=== PATIENT | female | born 1940 | race Caucasian/White ===

== ENCOUNTER 2017-04-03 13:11 | Inpatient (IN) | payer MEDICARE, OTHER ==
[~2017-04-03] VITALS: Ht 165.1 cm; Wt 81.6 kg
[~2017-04-03 13:11] MED LIST: AMLO5TAB4 PO; ASCO500C16 PO; ATOR10TA PO; BENEFIBER PO; CARB-93 PO; CLON0.1T PO; CRAN1TAB3 PO; DIVA500T2 PO; DOCU-25 PO; DONE10TA4 PO; GABA-532 PO; GABA-534 PO; GEMF600T PO; HEPA500014 SQ; HYDR-552 PO; HYDR25TA4 PO; INSU100V7 SQ; LACT1TAB20 PO; LEVO200T PO; LISI-603 PO; MULT1CAP34 PO; OMEP20CA10 PO; TYL2T PO; VORT10TA PO
--- NOTE | 2017-04-03 13:18 | NUR ---
Pt [email or web address] from [facility]: more altered. base line a/o x 1. hypotensive. Iv ns 300 cc given in field. Placed on monitor. Awaiting md order. Pt has LFA #18 iv access KILN CLEANER.
[2017-04-03] MEDS ORDERED: IV NS 0.9% 500 ML IV ONE (13:21)
[2017-04-03] MEDS ORDERED: IV SET PRIMARY 1 EA INFUS.SET MC ONE (13:21)
[2017-04-03] MEDS ORDERED: CEFTRIAXONE 1GM BAG (ER ONLY) 50 ML IV ONE ×2 (13:21→13:30)
[2017-04-03] MEDS ORDERED: SECONDARY IV SET 1 EA INFUS.SET MC ONE ×2 (13:22→17:34)
[2017-04-03] MEDS ORDERED: IV NS 0.9% 2,000 ML ONE (13:22)
[2017-04-03] MEDS ORDERED: IV SET PRIMARY PUMP SET 1 EA INFUS.SET MC ONE ×2 (13:22→17:34)
--- NOTE | 2017-04-03 13:26 | NUR ---
LFA #18 IV ACCESS SAVE ALL OPERATOR. BLOOD SAMPLE COLLECTED SENT TO LAB
[2017-04-03 13:27] LABS: BASOPHILS # (AUTO) 0.2 /CMM (0.0-0.2); EOSINOPHILS % (AUTO) 0.1 % (0.0-6.0); HEMATOCRIT 30 % (33-45); HEMOGLOBIN 9.8 g/dL (11.5-14.8); LYMPHOCYTES # (AUTO) 0.9 /CMM (0.8-4.8); LYMPHOCYTES % (AUTO) 11.2 % (20.0-44.0); MEAN CORPUSCULAR HEMOGLOBIN 27 PG (26.0-33.0); MEAN CORPUSCULAR HGB CONC 32 g/dl (31.0-36.0); MEAN CORPUSCULAR VOLUME 85 fL (82-100); MONOCYTES # (AUTO) 0.6 /CMM (0.1-1.30); MONOCYTES % (AUTO) 7.9 % (2.0-12.0); NEUTROPHILS # (AUTO) 6.3 /CMM (1.8-8.9); NEUTROPHILS % (AUTO) 78.8 % (43.0-81.0); PLATELET COUNT (AUTO) 148 /CMM (150-450); RED BLOOD CELL COUNT(AUTO) 3.57 MIL/uL (4.0-5.2)
[2017-04-03] MEDS ORDERED: AZITHROMYCIN 500 MG in IV D5W 250 ML IV ONE (13:30)
[2017-04-03] MEDS ORDERED: VANCOMYCIN 1 GM in IV D5W 250 ML IV ONE (13:30)
[2017-04-03] MEDS ORDERED: IV NS 0.9% 1,000 ML BAG IV ONE (13:30)
--- NOTE | 2017-04-03 13:42 | NUR ---
CALLED NURSING RETAIL INTERIOR DESIGNER FOR GARRY BED
[2017-04-03 13:43] LABS: INR 1.07 (0.87-1.13); PROTHROMBIN TIME 11.1 SECS (9.5-12.7)
[2017-04-03 13:45] LABS: CALCIUM, SERUM 8.4 mg/dL (8.5-10.1); CARBON DIOXIDE 28 mmol/L (21-32); CHLORIDE 99 mmol/L (98-107); GLUCOSE 210 mg/dL (74-106); POTASSIUM 5.4 mmol/L (3.5-5.1); SODIUM SERUM 134 mmol/L (136-145); UREA NITROGEN, BLOOD 50 mg/dL (7-18)
[2017-04-03 13:50] LABS: ALANINE AMINOTRANSFERASE < 6 U/L (12-78); ALKALINE PHOSPHATASE 50 U/L (46-116); ASPARTATE AMINOTRANSFERASE 9 U/L (15-37); BILIRUBIN,DIRECT 0.1 mg/dL (0.0-0.2); BILIRUBIN,TOTAL 0.3 mg/dL (0.2-1.0); TOTAL PROTEIN, SERUM 5.7 g/dL (6.4-8.2)
[2017-04-03 13:54] LABS: TROPONIN I < 0.017 ng/mL (0.00-0.056)
[2017-04-03 13:54] LABS: APPEARANCE,URINE CLOUDY (CLEAR); BILIRUBIN,URINE NEGATIVE (NEGATIVE); BLOOD, URINE NEGATIVE Ery/uL (NEGATIVE); COLOR,URINE YELLOW (YELLOW); KETONES,URINE TRACE (NEGATIVE); LEUKOCYTE ESTERASE ,URINE 1+ (NEGATIVE); NITRITE, URINE NEGATIVE (NEGATIVE); PH,URINE 5.5 (5.0-8.0); PROTEIN,URINE NEGATIVE (NEGATIVE); UGLUCOSE NEGATIVE (NEGATIVE); UROBILINOGEN,URINE 0.2 EU/dL (0.2)
[2017-04-03 14:10] LABS: RBC,URINE 0-2 /HPF (0-2)
[2017-04-03] MEDS ORDERED: INSU100I19 SQ (14:10)
[2017-04-03] MEDS ORDERED: CARB1TAB24 PO (14:10)
[2017-04-03] MEDS ORDERED: CLOP75TA2 PO (14:10)
[2017-04-03] MEDS ORDERED: INSU100V3 SQ (14:10)
[2017-04-03] MEDS ORDERED: FERR-58 PO (14:10)
[2017-04-03] MEDS ORDERED: NA P133E RC (14:10)
[2017-04-03] MEDS ORDERED: LEVO100T9 PO (14:10)
[2017-04-03] MEDS ORDERED: BISA10SU8 RC (14:10)
[2017-04-03] MEDS ORDERED: MAGN400O6 PO (14:10)
[2017-04-03 14:11] LABS: BACTERIA,URINE Few /HPF (None Seen); SQUAMOUS EPITHELIAL CELL,UR Few /HPF (None Seen); YEAST,URINE Few /HPF (None Seen)
--- NOTE | 2017-04-03 14:56 | NUR ---
Report given to CLARISSE Tripathi for ELLYN Tele 308
[2017-04-03] MEDS ORDERED: MAGNESIUM HYDROXIDE 30 ML UDC PO PRN (15:00)
[2017-04-03] MEDS ORDERED: BISACODYL SUPP (10 MG) 10 MG/SUPP.RECT SUPP.RECT RC PRN (15:00)
[2017-04-03] MEDS ORDERED: SODIUM POLYSTYRENE SULFONATE 15 G/60 ML BOTTLE PO ONE (15:00)
[2017-04-03] MEDS ORDERED: IV NS 0.9% 1,000 ML IV ONE (15:00)
[2017-04-03] MEDS ORDERED: DEXTROSE 50%-WATER 50 ML DISP.SYRIN IV PRN (15:00)
--- NOTE | 2017-04-03 15:20 | NUR ---
RN NOTES RECEIVED PATIENT FROM ER ONLY OPENS EYES AND SPEAKS FEW WORDS INCOMPREHENSIBLY AND GOES BACK TO SLEEP. RESPIRATIONS EVEN AND UNLABORED ON 10L VIA FACE MASK PT IS MOUTH BREATHER AND SATURATION AT 95% PT DNR DNI MD AWARE AND ORDERS PLACED. IN NO PAIN OR DISCOMFORT AT THIS TIME, IV SITE PATENT AND INTACT NO REDNESS OR INFILTRATION NOTED. DR MANN AWARE OF PT ADMISSION AND CONDITION WILL CONTINUE ORDERS, PT NOTED WITH HARD DEVICE LIKE AREA ON RIGHT UPPER QUADRANT UPON PALPATION NO DOCUMENTATION ON SNF PAPERWORK PT UNABLE TO VERBALIZE, CALLED SNF FOR FLU/PNA AND URINE CULTURE RECORDS, WILL AWAIT CALL BACK WILL MAKE NEXT SHIFT AWARE WILL CONTINUE TO MONITOR, KEPT CLEAN DRY AND COMFORTABLE, CALL LIGHT WITHIN EASY REACH, WILL CONTINUE TO MONITOR
[2017-04-03 16:00] VITALS: BP 105/43
[2017-04-03] MEDS ORDERED: FEE PK DOSING 1 MIN EA MC ONE (16:14)
[2017-04-03] MEDS: CARBIDOPA/LEVODOPA 25/250 MG 1 UDTAB PO SCH (17:00)
[2017-04-03] MEDS ORDERED: VANCOMYCIN 0.75 GM in IV D5W 250 ML IV SCH (17:00)
[2017-04-03] MEDS: FERROUS SULFATE (325 MG) 325 MG/TAB TABLET PO SCH (17:00)
[2017-04-03] MEDS: BLOOD SUGAR DIAGNOSTIC 1 EACH STRIP VI SCH ×2 (17:35→21:41)
[2017-04-03] MEDS: PIPERACILLIN /TAZOBACTAM 2.25 G in IV D5W 50 ML IV SCH (17:35)
[2017-04-03] MEDS: INSULIN REGULAR, HUMAN 100 UNIT/ML 3 ML VIAL SQ PRN (17:38)
--- NOTE | 2017-04-03 19:39 | NUR ---
RN NOTES PT OPENS EYES AND SPEAKS FEW WORDS INCOMPREHENSIBLY AND GOES BACK TO SLEEP. RESPIRATIONS EVEN AND UNLABORED ON 10L VIA FACE MASK PT IS MOUTH BREATHER AND SATURATION AT 95% PT DNR DNI MD AWARE AND ORDERS PLACED. IN NO PAIN OR DISCOMFORT AT THIS TIME, IV SITE PATENT AND INTACT NO REDNESS OR INFILTRATION NOTED. , PT NOTED WITH HARD DEVICE LIKE AREA ON RIGHT UPPER QUADRANT UPON PALPATION NO DOCUMENTATION ON SNF PAPERWORK PT UNABLE TO VERBALIZE, CALLED SNF FOR FLU/PNA AND URINE CULTURE RECORDS, WILL AWAIT CALL BACK WILL MAKE NEXT SHIFT AWARE WILL CONTINUE TO MONITOR, KEPT CLEAN DRY AND COMFORTABLE, CALL LIGHT WITHIN EASY REACH, ENDORSED TO NEXT SHIFT FOR CONTINUITY OF CARE
--- NOTE | 2017-04-03 19:40 | NUR ---
RN NOTES RECEIVED PT ASLEEP, HOB ELEVATED, OPENS EYES ONLY TO PAINFUL STIMULI, NON VERBAL, VERY LETHARGIC. ON 10 LPM O2 VIA FACE MASK AND TOLERATED WELL.. TELEMONITOR READS SINUS RHYTHM WITH 1ST DEGREE AV BLOCK AND PVC'S. WITH IV ACCESS ON LEFT ARM AND RIGHT ARM WITH ONGOING NS AT 100 CC/HR. PT IS DNR/DNI. KEPT COMFORTABLE AND ATTENDED. KEPT CLEAN AND DRY. WILL CONTINUE TO MONITOR PT.
[2017-04-03 20:00] VITALS: BP 97/47
[2017-04-03] MEDS: DIVALPROEX SODIUM 500 MG TABLET.DR PO SCH (21:00)
[2017-04-03] MEDS: HEPARIN SODIUM, PORCINE 5000 UNITS/1 ML VIAL SQ SCH (21:39)
[2017-04-03] MEDS: INSULIN DETEMIR 100 UNIT/ML CARTRIDGE SQ SCH (21:40)
--- NOTE | 2017-04-03 21:41 | NUR ---
RN NOTES BLOOD SUGAR CHECKED 119 MG/DL, NO INSULIN COVERAGE GIVEN PER SLIDING SCALE AND PT IS NPO. WILL CONTINUE TO MONITOR PT.
[2017-04-03] MEDS: *INSULIN REGULAR(HUMULIN R)HUM 100 UNIT/ML VIAL SQ PRN (21:43)
--- NOTE | 2017-04-03 21:50 | NUR ---
RN NOTES PT IS VERY LETHARGIC, UNABLE TO GIVE PO MEDS, VITAL SIGNS STABLE. DR MALAVE, MADE HER AWARE WITH ORDER TO HOLD PO MEDS UNTIL SEEN BY ST. NOTED AND CARRIED OUT.
[2017-04-03 22:00] VITALS: BP 97/47
[2017-04-03] MEDS ORDERED: ATORVASTATIN 10 MG TABLET PO SCH (22:00)
[2017-04-03] MEDS ORDERED: GABAPENTIN 300 MG CAPSULE PO SCH (22:00)
[2017-04-04] VITALS (8 sets, daily range): BP systolic 114–154; BP diastolic 46–58
[2017-04-04] MEDS: PIPERACILLIN /TAZOBACTAM 2.25 G in IV D5W 50 ML IV SCH ×4 (00:10→23:57)
[2017-04-04] MEDS: BLOOD SUGAR DIAGNOSTIC 1 EACH STRIP VI SCH ×4 (06:28→21:59)
--- NOTE | 2017-04-04 06:28 | NUR ---
RN NOTES BLOOD SUGAR CHECKED 84 MG/DL, PT PT OPENS HER EYES TO VERBAL AND TACTILE STIMULUS. NO SIGNS OF HYPOGLYCEMIA NOTED.
--- NOTE | 2017-04-04 06:56 | NUR ---
RN NOTES PT LEEP, HOB ELEVATED, BREATHING REGULAR AND UNLABORED, ON O2 INHALATION AT 10 LPM VIA FACIAL MASK WITH GOOD SATURATION. VITAL SIGNS, STABLE, AFEBRILE. NO SIGNS OF HYPOGLYCEMIA NOTED. TELE MONITOR READS SINUS RHYTHM WITH 1ST DEGREE AV BLOCK WITH PVC'S WITH HEART RATE OF 66. NO EPISODE OF NAUSEA, VOMITING AND DIARRHEA. PT STILL LETHARGIC, OPENS HER EYES AND MUMBLES WORDS TO VERBAL STIMULI. KEPT PT ON NPO UNTIL SEEN BY ST. KEPT CLEAN AND DRY. TURNED AND REPOSITION SCHEDULED. WILL ENDORSE TO MORNING RN FOR CONTINUITY OF CARE.
[2017-04-04] MEDS ORDERED: LEVOTHYROXINE SODIUM 100 MCG TABLET PO SCH (07:30)
--- NOTE | 2017-04-04 08:04 | NUR ---
RN NOTE RECEIVED PT ASLEEP. PT IS STABLE, DIFFICULT TO AROUSE. NO S/S OF DISTRESS OR PAIN. PT IS ON 10/L OXYGEN VIA FACE MASK. IV ON LFA 18G AND RFA 18G WITH NS RUNNING ON 100 ML/HR. PT IS DNR/DNI. SAFETY MEASURES IN PLACE, BED LOWERED TO LOWEST POSITION, CALL LIGHT WITHIN REACH. WILL CONTINUE TO MONITOR.
[2017-04-04] MEDS ORDERED: CLOPIDOGREL BISULFATE 75 MG TABLET PO SCH (09:00)
[2017-04-04] MEDS ORDERED: GABAPENTIN 100 MG CAPSULE PO SCH (09:00)
[2017-04-04] MEDS: DOCUSATE SODIUM 100 MG CAPSULE PO SCH (09:00)
[2017-04-04] MEDS: DIVALPROEX SODIUM 500 MG TABLET.DR PO SCH ×2 (09:00→21:57)
[2017-04-04] MEDS: CARBIDOPA/LEVODOPA 25/250 MG 1 UDTAB PO SCH ×2 (09:00→13:00)
[2017-04-04] MEDS ORDERED: GEMFIBROZIL 600 MG TABLET PO SCH (09:00)
[2017-04-04] MEDS: FERROUS SULFATE (325 MG) 325 MG/TAB TABLET PO SCH (09:00)
[2017-04-04] MEDS: HEPARIN SODIUM, PORCINE 5000 UNITS/1 ML VIAL SQ SCH ×2 (11:17→21:58)
[2017-04-04 12:50] LABS: BASOPHILS % (AUTO) 0.3 % (0.0-2.0); EOSINOPHILS % (AUTO) 0.1 % (0.0-6.0); HEMATOCRIT 30 % (33-45); HEMOGLOBIN 9.6 g/dL (11.5-14.8); MEAN CORPUSCULAR HEMOGLOBIN 27 PG (26.0-33.0); MEAN CORPUSCULAR HGB CONC 32 g/dl (31.0-36.0); MEAN CORPUSCULAR VOLUME 86 fL (82-100); MONOCYTES # (AUTO) 0.7 /CMM (0.1-1.30); MONOCYTES % (AUTO) 8.8 % (2.0-12.0); NEUTROPHILS # (AUTO) 6.1 /CMM (1.8-8.9); NEUTROPHILS % (AUTO) 77.8 % (43.0-81.0); PLATELET COUNT (AUTO) 117 /CMM (150-450); RDW COEFFICIENT OF VARIATION 18.1 (11.5-15.0); RED BLOOD CELL COUNT(AUTO) 3.55 MIL/uL (4.0-5.2); WHITE BLOOD COUNT (AUTO) 7.8 K/uL (4.3-11.0)
[2017-04-04 12:56] LABS: ALANINE AMINOTRANSFERASE < 6 U/L (12-78); ALBUMIN 1.6 g/dL (3.4-5.0); ALKALINE PHOSPHATASE 54 U/L (46-116); ASPARTATE AMINOTRANSFERASE 14 U/L (15-37); BILIRUBIN,TOTAL 0.4 mg/dL (0.2-1.0); CALCIUM, SERUM 8.3 mg/dL (8.5-10.1); CARBON DIOXIDE 26 mmol/L (21-32); CHLORIDE 105 mmol/L (98-107); CREATININE 1.5 mg/dL (0.6-1.3); GLUCOSE 109 mg/dL (74-106); PHOSPHORUS 3.5 mg/dL (2.5-4.9); POTASSIUM 5.5 mmol/L (3.5-5.1); SODIUM SERUM 137 mmol/L (136-145); TOTAL PROTEIN, SERUM 5.4 g/dL (6.4-8.2); UREA NITROGEN, BLOOD 44 mg/dL (7-18)
--- NOTE | 2017-04-04 14:43 | NUR ---
WOUND CARE CONSULT: PT PRESENTS WITH IMMOBILITY AND INCONTINENCE. SACRAL SCAR NOTED. RECOMMENDATIONS MADE FOR SKIN PROTECTION. DISCUSSED WITH NURSING STAFF. PT ON CLAUS ISOFLEX LOW AIRLOSS BED. WILL SEE PRN. MALLORY IN AGREEMENT WITH PLAN OF CARE. Addendum: 04/04/17 at 1444 by JOSETTE WINTERS WNDNU Amended: Links added.
[2017-04-04] MEDS: VANCOMYCIN 0.75 GM in IV D5W 250 ML IV SCH (14:50)
[2017-04-04] MEDS: Z GUARD REMEDY 2 OZ OINT TP SCH (15:00)
[2017-04-04] MEDS ORDERED: Z GUARD REMEDY 2 OZ OINT TP PRN (15:00)
[2017-04-04] MEDS ORDERED: SODIUM POLYSTYRENE SULFONATE 15 G/60 ML BOTTLE NG ONE (16:00)
[2017-04-04] MEDS ORDERED: PHARMACY TO CHANGE PO MEDS TO GT/NG XX PRN (16:00)
--- NOTE | 2017-04-04 16:03 | NUR ---
RN NOTES OBTAINED ORDER FOR NGT PLACEMENT, INSERTED 14 FR NGT AT 50CM LENGTH POSITIVE PLACEMENT BY AUSCULTATION CXR ORDERED TO VERIFY PLACEMENT PER MD, WILL CONTINUE TO MONITOR
[2017-04-04] MEDS ORDERED: MAGNESIUM HYDROXIDE 30 ML UDC GT PRN (16:10)
[2017-04-04] MEDS ORDERED: IV SET PRIMARY PUMP SET 1 EA INFUS.SET MC ONE (16:54)
[2017-04-04] MEDS ORDERED: SECONDARY IV SET 1 EA INFUS.SET MC ONE (16:54)
[2017-04-04] MEDS: FERROUS SULFATE (325 MG) 325 MG/TAB TABLET GT SCH (17:00)
--- NOTE | 2017-04-04 17:02 | NUR ---
RN NOTES PER MD WAIT UNTIL FINAL CXR RESULT TO CONFIRM PLACEMENT BEFORE ADMINISTERING MEDICATIONS VIA NGT
[2017-04-04] MEDS: IV D5/0.45 NACL 1,000 ML IV PRN (17:10)
[2017-04-04] MEDS: INSULIN REGULAR, HUMAN 100 UNIT/ML 3 ML VIAL SQ PRN (17:50)
--- NOTE | 2017-04-04 18:26 | NUR ---
RN NOTE PT IS ASLEEP, HOB ELEVATED, BREATHING REGULAR/UNLABORED. PT IS ON 10 L 02 VIA FACE MASK. NG TUBE INSERTED. CXR ORDERED FOR CONFIRMATION OF PLACEMENT. PT IS DIFFICULT TO AROUSE. KEPT PT ON NPO UNTIL CXR PLACEMENT CONFIRMATION IS OBTAINED. WILL ENDORSE TO BRAND COORDINATOR NURSE FOR CONTINUITY OF CARE.
--- NOTE | 2017-04-04 19:27 | NUR ---
RN NOTE CAN PUSHER NOTIFIED THAT EARLIER SCHEDULED PO KAYEXALATE AND CARBIDOPA WERE HELD UNTIL CXR CONFIRMS PLACEMENT OF NG TUBE. ONCE CONFIRMED NIGHTSHIFT NURSE AWARE TO GIVE BOTH MEDICATIONS.
--- NOTE | 2017-04-04 19:28 | NUR ---
RN NOTES RECEIVED PT ASLEEP, HOB ELEVATED, OPENS EYES ONLY TO VERBAL AND PAINFUL STIMULI, NON VERBAL, LETHARGIC. ON 10 LPM O2 VIA FACE MASK AND TOLERATED WELL.. TELEMONITOR READS SINUS RHYTHM WITH 1ST DEGREE AV BLOCK AND PVC'S. NGT ON RIGHT NARES PRESENT, AWAITING FOR THE X-RAY RESULT TO CONFIRM PLACEMENT. WITH IV ACCESS ON LEFT ARM AND RIGHT ARM WITH ONGOING D5 1/2NS AT 75 CC/HR. KEPT CLEAN AND DRY. WILL CONTINUE TO MONITOR PT.
--- NOTE | 2017-04-04 20:05 | NUR ---
RN NOTES CALLED RADIOLOGY, SPOKE TO ANSON TO ASK FOR THE CLARIFICATION OF THE NGT PLACEMENT. PER ANSON WILL CALL THE ONE WHO READ THE XR AND WILL CALL BACK.
--- NOTE | 2017-04-04 20:25 | NUR ---
RN NOTES RECEIVED A CALL FROM RADILOGIST BRANDY AND COFIRMED THE PLACEMENT OF THE NGT IN THE STOMACH AND WILL PUT ADDENDUM ON THE CXR READING.
[2017-04-04] MEDS: GLYTROL 1,000 ML BAG GT PRN (21:37)
--- NOTE | 2017-04-04 21:43 | NUR ---
RN NOTES BLOOD SUGAR CHECKED 122MG/DL, NO INSULIN COVERAGE PER SLIDING SCALE. WILL HOLD LEVEMIR DOSE BECAUSE PT JUST STARTED HER NGT FEEDING. WILL CONTINUE TO MONITOR PT.
[2017-04-04] MEDS: ATORVASTATIN 10 MG TABLET GT SCH (21:57)
[2017-04-04] MEDS: GABAPENTIN 300 MG CAPSULE GT SCH (21:58)
[2017-04-04] MEDS: INSULIN DETEMIR 100 UNIT/ML CARTRIDGE SQ SCH (22:00)
[2017-04-04] MEDS ORDERED: SODIUM POLYSTYRENE SULFONATE 15 G/60 ML BOTTLE ONE (22:17)
[2017-04-04] MEDS: CARBIDOPA/LEVODOPA 25/250 MG 1 UDTAB GT SCH (22:20)
[2017-04-05] VITALS (8 sets, daily range): BP systolic 128–153; BP diastolic 53–72
[2017-04-05] MEDS ORDERED: VANCOMYCIN 0.75 GM in IV D5W 250 ML IV SCH (02:00)
[2017-04-05] MEDS: BLOOD SUGAR DIAGNOSTIC 1 EACH STRIP VI SCH ×4 (06:05→21:42)
[2017-04-05] MEDS: INSULIN REGULAR, HUMAN 100 UNIT/ML 3 ML VIAL SQ PRN ×2 (06:51→12:32)
--- NOTE | 2017-04-05 06:51 | NUR ---
RN NOTES BLOOD SUGAR CHECKED 168 MG/DL, 3 UNITS INSULIN GIVEN PER SLIDING SCALE.WILL CONTINUE TO MONITOR.
[2017-04-05 07:18] LABS: BASOPHILS % (AUTO) 0.3 % (0.0-2.0); EOSINOPHILS % (AUTO) 0.4 % (0.0-6.0); HEMATOCRIT 26 % (33-45); HEMOGLOBIN 8.8 g/dL (11.5-14.8); LYMPHOCYTES % (AUTO) 14.5 % (20.0-44.0); MEAN CORPUSCULAR HEMOGLOBIN 28 PG (26.0-33.0); MEAN CORPUSCULAR HGB CONC 33 g/dl (31.0-36.0); MEAN CORPUSCULAR VOLUME 85 fL (82-100); MONOCYTES # (AUTO) 0.4 /CMM (0.1-1.30); NEUTROPHILS # (AUTO) 5.5 /CMM (1.8-8.9); NEUTROPHILS % (AUTO) 78.8 % (43.0-81.0); PLATELET COUNT (AUTO) 130 /CMM (150-450); RDW COEFFICIENT OF VARIATION 18.1 (11.5-15.0); WHITE BLOOD COUNT (AUTO) 6.9 K/uL (4.3-11.0)
[2017-04-05 07:39] LABS: CALCIUM, SERUM 8.4 mg/dL (8.5-10.1); CARBON DIOXIDE 30 mmol/L (21-32); CHLORIDE 105 mmol/L (98-107); CREATININE 1.2 mg/dL (0.6-1.3); GLUCOSE 176 mg/dL (74-106); MAGNESIUM 1.8 mg/dL (1.8-2.4); PHOSPHORUS 2.5 mg/dL (2.5-4.9); POTASSIUM 3.7 mmol/L (3.5-5.1); SODIUM SERUM 140 mmol/L (136-145); UREA NITROGEN, BLOOD 31 mg/dL (7-18)
--- NOTE | 2017-04-05 07:45 | NUR ---
RN NOTES PT LEEP, HOB ELEVATED, BREATHING REGULAR AND UNLABORED, ON O2 INHALATION AT 10 LPM VIA FACIAL MASK WITH GOOD SATURATION. VITAL SIGNS, STABLE, AFEBRILE. NO SIGNS OF HYPOGLYCEMIA NOTED. TELE MONITOR READS SINUS RHYTHM WITH 1ST DEGREE AV BLOCK . NO EPISODE OF NAUSEA, VOMITING AND DIARRHEA. KEPT PT ON NPO WITH NGT INTACT WITH FEEDING TOLERATED WELL. PT STILL LETHARGIC, OPENS HER EYES AND MUMBLES WORDS TO VERBAL STIMULI. KEPT CLEAN AND DRY. TURNED AND REPOSITION SCHEDULED. WILL ENDORSE TO MORNING RN FOR CONTINUITY OF CARE.
--- NOTE | 2017-04-05 08:00 | NUR ---
SUPERVISOR CHAR HOUSE AM NOTES RECEIVED PT AWAKE.HOB ELEVATED, OPENS EYES ONLY TO VERBAL AND PAINFUL STIMULI, NON VERBAL, LETHARGIC. ON 10 LPM O2 VIA FACE MASK AND TOLERATED WELL.. TELEMONITOR READS SINUS RHYTHM WITH 1ST DEGREE AV BLOCK AND PVC'S HR 77. NGT ON RIGHT NARES PRESENT,WITH IV ACCESS ON RIGHT ARM WITH ONGOING D5 1/2NS AT 75 CC/HR. KEPT CLEAN AND DRY. WILL CONTINUE TO MONITOR PT.
[2017-04-05] MEDS: CLOPIDOGREL BISULFATE 75 MG TABLET GT SCH (08:56)
[2017-04-05] MEDS: GABAPENTIN 100 MG CAPSULE GT SCH (08:56)
[2017-04-05] MEDS: VANCOMYCIN 0.75 GM in IV D5W 250 ML IV SCH (08:56)
[2017-04-05] MEDS: GEMFIBROZIL 600 MG TABLET GT SCH (08:56)
[2017-04-05] MEDS: CARBIDOPA/LEVODOPA 25/250 MG 1 UDTAB GT SCH ×3 (08:57→17:25)
[2017-04-05] MEDS: DOCUSATE SODIUM 100 MG CAPSULE PO SCH (08:57)
[2017-04-05] MEDS: FERROUS SULFATE (325 MG) 325 MG/TAB TABLET GT SCH ×2 (08:57→17:25)
[2017-04-05] MEDS: DIVALPROEX SODIUM 500 MG TABLET.DR PO SCH ×2 (09:03→21:40)
[2017-04-05] MEDS: LEVOTHYROXINE SODIUM 100 MCG TABLET GT SCH (09:03)
[2017-04-05] MEDS: HEPARIN SODIUM, PORCINE 5000 UNITS/1 ML VIAL SQ SCH ×2 (09:04→21:41)
[2017-04-05] MEDS: Z GUARD REMEDY 2 OZ OINT TP SCH (09:08)
--- NOTE | 2017-04-05 10:00 | NUR ---
PT IS MORE ALERT AND VERBALLY RESPONSIVE COMPARED YESTERDAY EVEN FAMILY NOTICED THE IMPROVEMENT IN PT'S LOC.PT IS ABLE TO SPIT OUT PHLEGM AFTER BREATHING TX.KEPT CLEAN AND DRY.
[2017-04-05] MEDS: PIPERACILLIN /TAZOBACTAM 2.25 G in IV D5W 50 ML IV SCH ×3 (11:46→23:41)
[2017-04-05] MEDS: FLUCONAZOLE (100 MG) 100 MG TABLET GT SCH (11:47)
--- NOTE | 2017-04-05 12:30 | NUR ---
PT'S RFA H/L GOT INFILTRATED AND PT IS A HARDSTICK.MIDLINE RN INSERTED A MIDLINE CATHETER TO MAGDY GAUGE 18.PT TOLERATED WELL.REMOVED RFA AND ELEVATED RT ARM TO REDUCE SWELLING.
--- NOTE | 2017-04-05 19:30 | NUR ---
RN NOTES RECEIVED PT AWAKE, HOB ELEVATED, MUMBLE UNCLEAR WORDS, ON 10 LPM O2 VIA FACE MASK AND TOLERATED WELL. NGT ON LEFT NARES INTACT, WITH ONGOING GLYTROL FEEDING AT 35 CC/HR AND TOLERATED WELL. IV ACCESS ON RIGHT UPPER ARM MIDLINE PATENT AND INTACT WITH ONGOING IVF INFUSING WELL. KEPT BED IN THE LOWEST POSITION, LOCKED, SIDE RAILS X2 UP WITH CALL LIGHT WITHIN REACH. KEPT PT CLEAN AND DRY. WILL CONTINUE TO MONITOR PT.
[2017-04-05] MEDS: GABAPENTIN 300 MG CAPSULE GT SCH (21:42)
[2017-04-05] MEDS: ATORVASTATIN 10 MG TABLET GT SCH (21:42)
--- NOTE | 2017-04-05 21:42 | NUR ---
RN NOTES ALL DUE MEDS GIVEN VIA NGT AND TOLERATED WELL. WILL CONTINUE TO MONITOR.
[2017-04-05] MEDS: INSULIN DETEMIR 100 UNIT/ML CARTRIDGE SQ SCH (21:48)
--- NOTE | 2017-04-05 21:48 | NUR ---
RN NOTES BLOOD SUGAR CHECKED 124 MG/DL, NO INSULIN COVERAGE PER SLIDING SCALE AND LEVEMIR 25 UNIT NOT ADMINISTERED. WILL CONTINUE TO MONITOR PT.
[2017-04-05] MEDS: *INSULIN REGULAR(HUMULIN R)HUM 100 UNIT/ML VIAL SQ PRN (21:52)
[2017-04-05] MEDS: IV D5/0.45 NACL 1,000 ML IV PRN (22:08)
--- NOTE | 2017-04-06 00:39 | NUR ---
RN NOTES WHILE CLEANING AND CHANGING THE DIAPER OF THE PT. PT PULLED OUT HER NGT. DR JULES NOTIFIED WITH ORDER TO KEEP NGT OUT AND ST EVAL FOR SWALLOWING. NOTED AND CARRIED OUT. WILL CONTINUE TO MONITOR.
[2017-04-06] MEDS: VANCOMYCIN 0.75 GM in IV D5W 250 ML IV SCH ×2 (02:15→20:38)
[2017-04-06] MEDS: PIPERACILLIN /TAZOBACTAM 2.25 G in IV D5W 50 ML IV SCH ×4 (06:16→23:07)
[2017-04-06] MEDS: BLOOD SUGAR DIAGNOSTIC 1 EACH STRIP VI SCH ×4 (06:30→22:00)
[2017-04-06] MEDS: INSULIN REGULAR, HUMAN 100 UNIT/ML 3 ML VIAL SQ PRN (06:31)
--- NOTE | 2017-04-06 06:31 | NUR ---
RN NOTES BLOOD SUGAR CHECKED 110 MG/DL, NO INSULIN COVERAGE PER SLIDING SCALE. NO SIGNS OF HYPOGLYCEMIA NOTED.
[2017-04-06 06:58] LABS: CALCIUM, SERUM 8.5 mg/dL (8.5-10.1); CARBON DIOXIDE 34 mmol/L (21-32); CHLORIDE 102 mmol/L (98-107); CREATININE 0.8 mg/dL (0.6-1.3); GLUCOSE 135 mg/dL (74-106); MAGNESIUM 1.9 mg/dL (1.8-2.4); PHOSPHORUS 2.6 mg/dL (2.5-4.9); POTASSIUM 3.6 mmol/L (3.5-5.1); SODIUM SERUM 137 mmol/L (136-145); UREA NITROGEN, BLOOD 18 mg/dL (7-18)
--- NOTE | 2017-04-06 07:03 | NUR ---
RN NOTES PT ASLEEP EASILY AROUSABLE, HOB ELEVATED, BREATHING REGULAR AND UNLABORED, ON O2 INHALATION AT 10 LPM VIA FACIAL MASK WITH GOOD SATURATION. VITAL SIGNS, STABLE, AFEBRILE. NO SIGNS OF HYPOGLYCEMIA NOTED. NO EPISODE OF NAUSEA, VOMITING AND DIARRHEA. KEPT PT ON NPO UNTIL SEEN BY ST. PT MORE ALERT, STAYS AWAKE FOR 3-4 HRS AND MUMBLES UNCLEAR WORDS KEPT CLEAN AND DRY. TURNED AND REPOSITION SCHEDULED. WILL ENDORSE TO MORNING RN FOR CONTINUITY OF CARE.
[2017-04-06 07:23] LABS: BASOPHILS % (AUTO) 0.3 % (0.0-2.0); EOSINOPHILS # (AUTO) 0.1 /CMM (0.0-0.7); EOSINOPHILS % (AUTO) 1.1 % (0.0-6.0); HEMATOCRIT 28 % (33-45); LYMPHOCYTES # (AUTO) 1.6 /CMM (0.8-4.8); LYMPHOCYTES % (AUTO) 22.2 % (20.0-44.0); MEAN CORPUSCULAR HEMOGLOBIN 28 PG (26.0-33.0); MEAN CORPUSCULAR HGB CONC 33 g/dl (31.0-36.0); MEAN CORPUSCULAR VOLUME 85 fL (82-100); MONOCYTES # (AUTO) 0.4 /CMM (0.1-1.30); MONOCYTES % (AUTO) 5.8 % (2.0-12.0); NEUTROPHILS # (AUTO) 5.2 /CMM (1.8-8.9); NEUTROPHILS % (AUTO) 70.6 % (43.0-81.0); PLATELET COUNT (AUTO) 127 /CMM (150-450); RDW COEFFICIENT OF VARIATION 18.4 (11.5-15.0); RED BLOOD CELL COUNT(AUTO) 3.25 MIL/uL (4.0-5.2); WHITE BLOOD COUNT (AUTO) 7.4 K/uL (4.3-11.0)
[2017-04-06] MEDS: LEVOTHYROXINE SODIUM 100 MCG TABLET GT SCH (07:30)
[2017-04-06 08:00] VITALS: BP 133/59
--- NOTE | 2017-04-06 08:00 | NUR ---
RN NOTE RECEIVED PT. PT IS STABLE AND SLEEPING. HOB ELEVATED. O2 AT 10LPM RUNNING VIA FACE MASK. VSS, NO S/S OF SOB OR DISTRESS. PT IS NPO UNTIL ST EVALUATION. SAFETY MEASURES IN PLACE, BED LOWERED TO LOWEST POSITION. WILL CONTINUE TO MONITOR.
[2017-04-06] MEDS: GEMFIBROZIL 600 MG TABLET GT SCH (09:00)
[2017-04-06] MEDS: CLOPIDOGREL BISULFATE 75 MG TABLET GT SCH (09:00)
[2017-04-06] MEDS: GABAPENTIN 100 MG CAPSULE GT SCH (09:00)
[2017-04-06] MEDS: CARBIDOPA/LEVODOPA 25/250 MG 1 UDTAB GT SCH ×3 (09:00→17:00)
[2017-04-06] MEDS: FERROUS SULFATE (325 MG) 325 MG/TAB TABLET GT SCH ×2 (09:00→17:00)
[2017-04-06] MEDS: FLUCONAZOLE (100 MG) 100 MG TABLET GT SCH (09:00)
[2017-04-06] MEDS: DIVALPROEX SODIUM 500 MG TABLET.DR PO SCH ×2 (09:00→21:50)
[2017-04-06] MEDS: DOCUSATE SODIUM 100 MG CAPSULE PO SCH (09:00)
--- NOTE | 2017-04-06 09:00 | NUR ---
PT AWAKE AND VERBALLY RESPONSIVE.ATTEMPTED TO TRANSFER PT TO THE CHAIR BUT PT IS WEIGHT AND IS TOO LETHARGIC TO BE TRANSFERRED-NEEDED 4 PERSON ASSIST TO TRANSFER.WILL TRY LATER.PT IS FOR PT EVAL.
[2017-04-06] MEDS: HEPARIN SODIUM, PORCINE 5000 UNITS/1 ML VIAL SQ SCH ×2 (09:30→21:50)
[2017-04-06] MEDS: Z GUARD REMEDY 2 OZ OINT TP SCH (09:37)
[2017-04-06 09:59] VITALS: BP 133/59
--- NOTE | 2017-04-06 15:55 | NUR ---
RN NOTE AM PO MEDS HELD DUE TO NPO STATUS, PENDING ST EVALUATION. ST CONTACTED.
[2017-04-06 16:00] VITALS: BP 128/60
--- NOTE | 2017-04-06 17:27 | NUR ---
PT FAILED THE SWALLOW EVAL.NOTIFIED BOBBY FINCH NP WITH ORDERS TO REINSERT PT'S NGT AND RESUME PT'S GT FEEDING.WILL CALL FAMILY IF THEY AGREED TO HAVE PEG TUBE PLACEMENT.
--- NOTE | 2017-04-06 17:30 | NUR ---
CALLED PT'S ,CHARLES TANG,WHO AGREED FOR PT TO HAVE PEG PLACEMENT.NOTIFIED BOBBY FINCH NP AND MADE AWARE.
--- NOTE | 2017-04-06 18:15 | NUR ---
RN NOTE NGT PLACED. STAT XRAY ORDERED TO CONFIRM PLACEMENT. MEDS HELD UNTIL CXR CONFIRMS PLACEMENT.
--- NOTE | 2017-04-06 18:24 | NUR ---
RN CLOSING NOTE PT IS AWAKE AND ALERT. HOB ELEVATED. NO S/S OF DISTRESS OR PAIN. NGT PLACED, STAT CXR ORDERED FOR CONFIRMATION OF PLACEMENT. BILATERAL WRIST RESTRAINTS APPLIED. D5W 1/2 RUNNING AT 50 ML/HR VIA MIDLINE ON RFA. SAFETY MEASURES PLACED. WILL ENDORSE TO UTILITY SUPERVISOR BOAT AND PLANT FOR CONTINUITY OF CARE.
[2017-04-06] MEDS: IV D5/0.45 NACL 1,000 ML IV PRN (18:56)
--- NOTE | 2017-04-06 18:57 | NUR ---
DR MARROQUIN CALLED AND GAVE ORDERS TO OBTAIN CONSENT FOR PEG PLACEMENT WHICH WILL BE DONE EITHER TUESDAY OR TUESDAY.DR MARROQUIN STATED TO REINSERT NGT AND RESUME GT FEEDING.HELD PLAVIX ORDERED.
--- NOTE | 2017-04-06 19:10 | NUR ---
RN NOTES RECEIVED PT AWAKE, HOB ELEVATED, MUMBLE UNCLEAR WORDS, ON 2 LPM O2 VIA NC AND TOLERATED WELL. NGT ON LEFT NARES INTACT, AWAITING FOR X-RAY RESULT TO CONFIRM PLACEMENT IN THE STOMACH. IV ACCESS ON RIGHT UPPER ARM MIDLINE PATENT AND INTACT WITH ONGOING IVF INFUSING WELL. KEPT BED IN THE LOWEST POSITION, LOCKED, SIDE RAILS X2 UP WITH CALL LIGHT WITHIN REACH. KEPT PT CLEAN AND DRY. WILL CONTINUE TO MONITOR PT.
--- NOTE | 2017-04-06 19:40 | NUR ---
RN NOTES PER REPORT FROM AM NURSE, PT IS FOR PEG PLACEMENT ON TUESDAY (04/08/17) OR TUESDAY (04/11/17). , CHARLES TANG GAVE AND SIGNED THE CONSENT FOR THE PROCEDURE.
[2017-04-06 20:00] VITALS: BP 133/53
[2017-04-06] MEDS: GLYTROL 1,000 ML BAG GT PRN (20:38)
--- NOTE | 2017-04-06 20:38 | NUR ---
RN NOTES X-RAY RESULT RECEIVED AND CONFIRMED THE PLACEMENT OF THE NG TUBE IN THE STOMACH. GLYTROL FEEDING STARTED AT 35 ML/HR ORDERED. WILL CONTINUE TO MONITOR PT.
[2017-04-06] MEDS: GABAPENTIN 300 MG CAPSULE GT SCH (21:51)
[2017-04-06] MEDS: ATORVASTATIN 10 MG TABLET GT SCH (21:51)
[2017-04-06 22:00] VITALS: BP 133/53
[2017-04-06] MEDS: *INSULIN REGULAR(HUMULIN R)HUM 100 UNIT/ML VIAL SQ PRN (22:01)
--- NOTE | 2017-04-06 22:01 | NUR ---
RN NOTES BLOOD SUGAR CHECKED 1165 MG/DL, 3 UNITS INSULIN GIVEN SUBCU PER SLIDING SCALE. WILL CONTINUE TO MONITOR PT.
[2017-04-06] MEDS: INSULIN DETEMIR 100 UNIT/ML CARTRIDGE SQ SCH (22:02)
[2017-04-07] MEDS: PIPERACILLIN /TAZOBACTAM 2.25 G in IV D5W 50 ML IV SCH ×3 (05:48→17:58)
[2017-04-07] MEDS: BLOOD SUGAR DIAGNOSTIC 1 EACH STRIP VI SCH ×4 (06:45→22:07)
[2017-04-07] MEDS: INSULIN REGULAR, HUMAN 100 UNIT/ML 3 ML VIAL SQ PRN ×2 (06:46→18:22)
--- NOTE | 2017-04-07 06:46 | NUR ---
RN NOTES BLOOD SUGAR CHECKED 141 MG/DL, 2 UNITS REGULAR INSULIN GIVEN SUBCU PER SLIDING SCALE.
[2017-04-07 06:48] LABS: BASOPHILS % (AUTO) 0.3 % (0.0-2.0); EOSINOPHILS # (AUTO) 0.1 /CMM (0.0-0.7); EOSINOPHILS % (AUTO) 2.8 % (0.0-6.0); HEMATOCRIT 24 % (33-45); HEMOGLOBIN 7.8 g/dL (11.5-14.8); LYMPHOCYTES # (AUTO) 1.2 /CMM (0.8-4.8); LYMPHOCYTES % (AUTO) 26.1 % (20.0-44.0); MEAN CORPUSCULAR HEMOGLOBIN 28 PG (26.0-33.0); MEAN CORPUSCULAR HGB CONC 33 g/dl (31.0-36.0); MEAN CORPUSCULAR VOLUME 84 fL (82-100); MONOCYTES # (AUTO) 0.6 /CMM (0.1-1.30); MONOCYTES % (AUTO) 12.4 % (2.0-12.0); NEUTROPHILS # (AUTO) 2.7 /CMM (1.8-8.9); NEUTROPHILS % (AUTO) 58.4 % (43.0-81.0); PLATELET COUNT (AUTO) 148 /CMM (150-450); RDW COEFFICIENT OF VARIATION 17.5 (11.5-15.0); RED BLOOD CELL COUNT(AUTO) 2.84 MIL/uL (4.0-5.2); WHITE BLOOD COUNT (AUTO) 4.6 K/uL (4.3-11.0)
--- NOTE | 2017-04-07 07:15 | NUR ---
RN NOTES PT ASLEEP EASILY AROUSABLE, HOB ELEVATED, BREATHING REGULAR AND UNLABORED, ON O2 INHALATION AT 2 LPM VIA NC WITH GOOD SATURATION. NGT INTACT WITH ONGOING FEEDING AND TOLERATED WELL. VITAL SIGNS, STABLE, AFEBRILE. NO SIGNS OF HYPOGLYCEMIA NOTED. NO EPISODE OF NAUSEA, VOMITING AND DIARRHEA. PT MORE ALERT AND MUMBLES UNCLEAR WORDS. SOFT WRIST RESTRAINT ON LEFT HAND ON, WITH GOOD CIRCULATION. KEPT CLEAN AND DRY. TURNED AND REPOSITION SCHEDULED. WILL ENDORSE TO MORNING RN FOR CONTINUITY OF CARE.
[2017-04-07 07:34] LABS: CALCIUM, SERUM 8.2 mg/dL (8.5-10.1); CARBON DIOXIDE 33 mmol/L (21-32); CHLORIDE 100 mmol/L (98-107); CREATININE 0.7 mg/dL (0.6-1.3); GLUCOSE 132 mg/dL (74-106); MAGNESIUM 1.7 mg/dL (1.8-2.4); PHOSPHORUS 2.5 mg/dL (2.5-4.9); POTASSIUM 2.9 mmol/L (3.5-5.1); SODIUM SERUM 137 mmol/L (136-145); UREA NITROGEN, BLOOD 10 mg/dL (7-18)
--- NOTE | 2017-04-07 07:43 | NUR ---
RN OPENING NOTES RECEIVED PATIENT IN BED ASLEEP, AROUSES EASILY. PATIENT ALERT AND MUMBLES UNCLEAR WORDS. RESPIRATIONS EVEN AND UNLABORED, ON O2 AT 2LPM VIA NC WITH GOOD SATURATION. NGT IN PLACE WITH ONGOING FEEDING AND TOLERATED WELL. SOFT WRIST RESTRAINT ON LEFT HAND ON, WITH GOOD CIRCULATION. BED IN LOWEST POSITION, HOB ELEVATED. CALL LIGHT WITHIN REACH. WILL CONTINUE TO MONITOR ACCORDINGLY.
[2017-04-07 07:57] VITALS: BP 114/63
[2017-04-07 08:00] VITALS: BP 114/63
[2017-04-07] MEDS: CARBIDOPA/LEVODOPA 25/250 MG 1 UDTAB GT SCH ×3 (08:31→16:25)
[2017-04-07] MEDS: LEVOTHYROXINE SODIUM 100 MCG TABLET GT SCH (08:31)
[2017-04-07] MEDS: DOCUSATE SODIUM 100 MG CAPSULE PO SCH (08:32)
[2017-04-07] MEDS: GEMFIBROZIL 600 MG TABLET GT SCH (08:32)
[2017-04-07] MEDS: FERROUS SULFATE (325 MG) 325 MG/TAB TABLET GT SCH ×2 (08:32→16:25)
[2017-04-07] MEDS: GABAPENTIN 100 MG CAPSULE GT SCH (08:32)
[2017-04-07] MEDS: FLUCONAZOLE (100 MG) 100 MG TABLET GT SCH (08:32)
[2017-04-07] MEDS: DIVALPROEX SODIUM 500 MG TABLET.DR PO SCH ×2 (08:33→21:40)
[2017-04-07] MEDS ORDERED: POTASSIUM CHLORIDE 20 MEQ POWDER PACKET GT ONE (09:00)
[2017-04-07] MEDS: Z GUARD REMEDY 2 OZ OINT TP SCH (10:36)
[2017-04-07] MEDS: HEPARIN SODIUM, PORCINE 5000 UNITS/1 ML VIAL SQ SCH ×2 (10:37→21:00)
[2017-04-07] MEDS ORDERED: SECONDARY IV SET 1 EA INFUS.SET MC ONE (11:06)
[2017-04-07] MEDS: Magnesium 1GM/D5W 100ML PREMIX 100 ML IV SCH ×2 (11:11→15:11)
--- NOTE | 2017-04-07 12:00 | NUR ---
PER DR GIL, PATIENT FOR EDG AND PEG PLACEMENT TOMMORW AT 0900, HOLD PLAVIX AND NPO AFTER MIDNIGHT.
[2017-04-07] MEDS: VANCOMYCIN 0.75 GM in IV D5W 250 ML IV SCH (13:56)
[2017-04-07 16:00] VITALS: BP 125/65
[2017-04-07] MEDS ORDERED: BLOOD IV SET 1 EA INFUS.SET MC ONE (16:21)
[2017-04-07] MEDS ORDERED: IV NS 0.9% 0 ML IV ONE (17:44)
--- NOTE | 2017-04-07 19:00 | NUR ---
RN CLOSING NOTES PATIENT IN BED RESTING. NO CHANGE OF CONDITION. NO ACUTE DISTRESS NOTED. NO SOB. ALL NEEDS ATTENDED AND PROVIDED. KEPT PATIENT CLEAN AN DRY. SOFT RESTRAINT ON LEFT HAND CHECKED WITH GOOD CIRCULATION. BED IN LOWEST POSITION. CALL LIGHT WITHIN REACH. ENDORSED TO WINDOW SHADE ESTIMATOR RN FOR CONTINUITY OF CARE.
--- NOTE | 2017-04-07 19:30 | NUR ---
RN NOTES RECEIVED PATIENT IN BED AWAKE, AO X 1, ABLE TO SAY NAME, GARBLED SPEECH, CANNOT FOLLOW SIMPLE DIRECTIONS. NO ACUTE DISTRESS NOTED. NO SIGNS OF PAIN NOTED. IV SITE PATENT, INTACT; FLUSHED. NGT PATENT, INTACT; IN PLACE VIA AUSCULTATION. GTF INFUSING. LEFT SOFT WRIST IN PLACE. RELEASED FOR ROM. ON LOW BED WITH BILATERAL UPPER SIDE RAILS UP. WILL CONTINUE TO MONITOR.
[2017-04-07 20:00] VITALS: BP 120/99
[2017-04-07] MEDS: ATORVASTATIN 10 MG TABLET GT SCH (21:40)
[2017-04-07] MEDS: GABAPENTIN 300 MG CAPSULE GT SCH (21:40)
[2017-04-07] MEDS: INSULIN DETEMIR 100 UNIT/ML CARTRIDGE SQ SCH (22:00)
--- NOTE | 2017-04-07 22:07 | NUR ---
RN NOTES BS 80. NPO AT MIDNIGHT. MITCHELL MAXWELL.
[2017-04-08] VITALS (10 sets, daily range): BP systolic 130–151; BP diastolic 59–76
--- NOTE | 2017-04-08 | NUR ---
RN NOTES NPO STARTING MIDNIGHT.
[2017-04-08] MEDS ORDERED: IV NS 0.9% 250 ML IV ONE ×2 (00:05→08:57)
[2017-04-08] MEDS: PIPERACILLIN /TAZOBACTAM 2.25 G in IV D5W 50 ML IV SCH ×5 (00:16→23:25)
--- NOTE | 2017-04-08 06:03 | NUR ---
RN NOTES PATIENT ASLEEP, EASILY AROUSABLE. RESPIRATIONS EVEN. NO SIGNS OF PAIN NOTED. DUE MEDS GIVEN WITH NO ASE NOTED. NEEDS ATTENDED. SAFETY PRECAUTIONS AND COMFORT MEASURES IN PLACE. WILL GIVE REPORT TO DAY SHIFT FOR CONTINUITY OF CARE.
[2017-04-08 06:42] LABS: CALCIUM, SERUM 8.9 mg/dL (8.5-10.1); CARBON DIOXIDE 36 mmol/L (21-32); CHLORIDE 103 mmol/L (98-107); CREATININE 0.7 mg/dL (0.6-1.3); GLUCOSE 107 mg/dL (74-106); MAGNESIUM 2.2 mg/dL (1.8-2.4); POTASSIUM 3.9 mmol/L (3.5-5.1); SODIUM SERUM 141 mmol/L (136-145); UREA NITROGEN, BLOOD 7 mg/dL (7-18); VANCOMYCIN,TROUGH 21 ug/ml (12-20)
[2017-04-08] MEDS: BLOOD SUGAR DIAGNOSTIC 1 EACH STRIP VI SCH ×4 (06:51→21:59)
--- NOTE | 2017-04-08 07:15 | NUR ---
RN NOTES RECEIVED PATIENT ON BED ASLEEP, AROUSES EASILY. ALERT AND ORIENTED X1, ABLE TO SAY NAME, GARBLED SPEECH. NO ACUTE DISTRESS NOTED. NO S/S OF PAIN OR DISCOMFORT. IV SITE INTACT AND PATENT. NGT IN PLACE. PATIENT IS FOR EDG AND PEG PLACEMENT TODAY, CONSENT SIGNED. BED IN LOWEST POSITION. CALL LIGHT WITHIN REACH. WILL CONTINUE TO MONITOR.
[2017-04-08] MEDS: LEVOTHYROXINE SODIUM 100 MCG TABLET GT SCH (07:30)
[2017-04-08] MEDS: VANCOMYCIN 0.75 GM in IV D5W 250 ML IV SCH (07:42)
--- NOTE | 2017-04-08 07:43 | NUR ---
VANCOMYCIN HELD, VANCO TROUGH LEVEL 21
--- NOTE | 2017-04-08 08:10 | NUR ---
PATIENT WENT TO PEG PLACEMENT WITH 2 OR NURSES, PATIENT STABLE VITAL SIGNS.
[2017-04-08 08:32] LABS: BASOPHILS % (AUTO) 0.2 % (0.0-2.0); EOSINOPHILS # (AUTO) 0.2 /CMM (0.0-0.7); EOSINOPHILS % (AUTO) 2.7 % (0.0-6.0); HEMATOCRIT 25 % (33-45); HEMOGLOBIN 8.3 g/dL (11.5-14.8); LYMPHOCYTES # (AUTO) 1.9 /CMM (0.8-4.8); LYMPHOCYTES % (AUTO) 26.3 % (20.0-44.0); MEAN CORPUSCULAR HEMOGLOBIN 28 PG (26.0-33.0); MEAN CORPUSCULAR HGB CONC 33 g/dl (31.0-36.0); MEAN CORPUSCULAR VOLUME 84 fL (82-100); MONOCYTES % (AUTO) 14.8 % (2.0-12.0); PLATELET COUNT (AUTO) 186 /CMM (150-450); RDW COEFFICIENT OF VARIATION 17.6 (11.5-15.0); RED BLOOD CELL COUNT(AUTO) 2.99 MIL/uL (4.0-5.2); WHITE BLOOD COUNT (AUTO) 7.1 K/uL (4.3-11.0)
[2017-04-08] MEDS: CARBIDOPA/LEVODOPA 25/250 MG 1 UDTAB GT SCH ×4 (09:00→17:48)
[2017-04-08] MEDS: DOCUSATE SODIUM 100 MG CAPSULE PO SCH (09:00)
[2017-04-08] MEDS: GABAPENTIN 100 MG CAPSULE GT SCH (09:00)
[2017-04-08] MEDS: FLUCONAZOLE (100 MG) 100 MG TABLET GT SCH (09:00)
[2017-04-08] MEDS: FERROUS SULFATE (325 MG) 325 MG/TAB TABLET GT SCH ×2 (09:00→16:10)
[2017-04-08] MEDS: Z GUARD REMEDY 2 OZ OINT TP SCH (09:00)
[2017-04-08] MEDS: DIVALPROEX SODIUM 500 MG TABLET.DR PO SCH (09:00)
[2017-04-08] MEDS: GEMFIBROZIL 600 MG TABLET GT SCH (09:00)
--- NOTE | 2017-04-08 09:00 | NUR ---
TALKED WITH JON ARZOLA RD ABOUT ADVANCEMENT OF TUBE FEEDING RATE TO 75ML/HR. OK TO ADVANCE TUBE FEEDING RATE [facility]
--- NOTE | 2017-04-08 12:00 | NUR ---
PER MD, HOLD ANTICOAGULATION FOR 48 HOURS THEN RESUME.
--- NOTE | 2017-04-08 12:45 | NUR ---
PATIENT CAME BACK FROM PEG PLACEMENT. PATIENT IN STABLE CONDITION
--- NOTE | 2017-04-08 15:00 | NUR ---
STARTED 1 UNIT PRBC 350MLS. PATIENT STABLE VITAL SIGNS. WILL CONTINUE TO MONITOR
--- NOTE | 2017-04-08 19:00 | NUR ---
1 UNIT PRBC TRANSFUSED. NO ADVERSE REACTION NOTED. PATIENT VITAL SIGNS STABLE. WILL CONTINUE TO MONITOR
--- NOTE | 2017-04-08 19:10 | NUR ---
MS RN OPENING NOTES: RECEIVED PT IN BED ASLEEP WITH NC ON 2LPM VIA NC. PT IS TOLERATING WELL. PT FOUND WITH SOFT LEFT WRIST RESTRAINT. ENDORSED FROM AM NURSE THAT SHE ATTEMPTS TO PULL OUT LINES. PT IS A/O X1. PT IS S/P PEG PLACEMENT AND FEEDING HAS NOT BEEN STARTED YET. PT IS S/P 1 UNIT PRBC. NO RESIDUAL NOTED FROM G TUBE. WILL CONTINUE TO MONITOR PT.
--- NOTE | 2017-04-08 19:10 | NUR ---
PATIENT RESTING IN BED. NO ACUTE DISTRESS NOTED. NO SOB. ALL NEEDS ATTENDED AND PROVIDED. ENDORSED TO OVEN LOADER RN FOR CONTINUITY OF CARE.
[2017-04-08] MEDS ORDERED: VANCOMYCIN 0.75 GM in IV D5W 250 ML IV SCH (20:00)
--- NOTE | 2017-04-08 20:00 | NUR ---
MS RN NOTES: BENNY HELD D/T BENNY TROUGH BEING 21.
[2017-04-08] MEDS ORDERED: GLYTROL 1,000 ML BAG GT PRN (20:38)
--- NOTE | 2017-04-08 21:30 | NUR ---
MS RN NOTES: SPOKE WITH DR. MARISA RAGLAND. GOT ORDER TO STOP DEPAKOTE 500MG AND SWITCH TO DEPAKENE 500 SINCE PT NOW HAS A PEG.
[2017-04-08] MEDS ORDERED: VALPROIC ACID 250 MG/5 ML UDC ONE (21:46)
[2017-04-08] MEDS: ATORVASTATIN 10 MG TABLET GT SCH (21:49)
[2017-04-08] MEDS: GABAPENTIN 300 MG CAPSULE GT SCH (21:49)
[2017-04-08] MEDS: VALPROIC ACID 250 MG/5 ML UDC GT SCH (21:50)
[2017-04-08] MEDS: INSULIN DETEMIR 100 UNIT/ML CARTRIDGE SQ SCH (22:00)
--- NOTE | 2017-04-08 22:00 | NUR ---
MS RN NOTES: PT IS STATUS POST PEG PLACEMENT. FEEDING HAD NOT BEEN STARTED YET. BLOOD SUGAR WAS 82. LEVEMIR 25 UNITS WAS HELD. WILL CONTINUE TO MONITOR PT.
[2017-04-08] MEDS ORDERED: BLOOD IV SET 1 EA INFUS.SET MC ONE (22:29)
[2017-04-08] MEDS ORDERED: IV NS 0.9% 0 ML IV ONE (22:33)
--- NOTE | 2017-04-08 23:17 | NUR ---
MS RN NOTES: NOTICED THAT ZOSYN FOR 1600 WAS NOT GIVEN. SPOKE WITH CHARGE NURSE. CHARGE NURSE AWARE AND SHE SAID JUST TO HANG THE MIDNIGHT DOSE.
--- NOTE | 2017-04-08 23:17 | NUR ---
MS RN NOTES: ZOSYN FOR 1600PM DOSE MISSED. CHARGE NURSE AWARE.
[2017-04-09] MEDS: PIPERACILLIN /TAZOBACTAM 2.25 G in IV D5W 50 ML IV SCH (05:48)
[2017-04-09 06:37] LABS: BASOPHILS % (AUTO) 0.4 % (0.0-2.0); EOSINOPHILS # (AUTO) 0.2 /CMM (0.0-0.7); EOSINOPHILS % (AUTO) 3.1 % (0.0-6.0); HEMATOCRIT 28 % (33-45); HEMOGLOBIN 9.4 g/dL (11.5-14.8); LYMPHOCYTES # (AUTO) 1.5 /CMM (0.8-4.8); LYMPHOCYTES % (AUTO) 22.9 % (20.0-44.0); MEAN CORPUSCULAR HEMOGLOBIN 28 PG (26.0-33.0); MEAN CORPUSCULAR HGB CONC 33 g/dl (31.0-36.0); MEAN CORPUSCULAR VOLUME 85 fL (82-100); MONOCYTES # (AUTO) 0.9 /CMM (0.1-1.30); MONOCYTES % (AUTO) 14.2 % (2.0-12.0); NEUTROPHILS # (AUTO) 3.8 /CMM (1.8-8.9); NEUTROPHILS % (AUTO) 59.4 % (43.0-81.0); PLATELET COUNT (AUTO) 159 /CMM (150-450); RDW COEFFICIENT OF VARIATION 16.3 (11.5-15.0); RED BLOOD CELL COUNT(AUTO) 3.32 MIL/uL (4.0-5.2); WHITE BLOOD COUNT (AUTO) 6.4 K/uL (4.3-11.0)
[2017-04-09 07:02] LABS: CALCIUM, SERUM 8.5 mg/dL (8.5-10.1); CARBON DIOXIDE 36 mmol/L (21-32); CHLORIDE 101 mmol/L (98-107); CREATININE 0.6 mg/dL (0.6-1.3); GLUCOSE 165 mg/dL (74-106); POTASSIUM 3.6 mmol/L (3.5-5.1); SODIUM SERUM 139 mmol/L (136-145); UREA NITROGEN, BLOOD 6 mg/dL (7-18)
--- NOTE | 2017-04-09 07:23 | NUR ---
MS RN CLOSING NOTES: ALL NEEDS WERE ATTENDED AND ANTICIPATED FOR. PT REMAINS ON 2LPM VIA NC AND IS TOLERATING WELL. PT HAS L SOFT WRIST RESTRAINTS. PT IS A/O X1 WITH PERIODS OF CONFUSION. CALL LIGHT WITHIN PT'S REACH. BED KEPT IN LOCKED, LOWEST POSITION, AND SIDE RAILS X 2 UP. PT ON GLYTROL 65ML/HR. PT'S IV REMAINS PATENT AND INTACT AND IS ON HEP LOCK. NO SIGNS OR SYMPTOMS OF DISTRESS NOTED AT THIS TIME. ENDORSED TO AM NURSE FOR ELLYN.
--- NOTE | 2017-04-09 07:30 | NUR ---
RN MS NOTES PT IN BED, AWAKE, ALERT TO SELF, WITH PERIODS OF CONFUSION, RESPIRATIONS NORMAL, CALL LIGHT WITHIN REACH, GT FEEDING INFUSING WELL, NO BLEEDING OR S/S OF INFECTION ON GT SITE, TURNED AND REPOSITIONED, KEPT WARM AND COMFORTABLE.
[2017-04-09 08:00] VITALS: BP 148/51
[2017-04-09] MEDS: LEVOTHYROXINE SODIUM 100 MCG TABLET GT SCH (10:15)
[2017-04-09] MEDS: GEMFIBROZIL 600 MG TABLET GT SCH (10:16)
[2017-04-09] MEDS: DOCUSATE SODIUM 100 MG CAPSULE PO SCH (10:16)
[2017-04-09] MEDS: CARBIDOPA/LEVODOPA 25/250 MG 1 UDTAB GT SCH ×2 (10:16→12:37)
[2017-04-09] MEDS: FERROUS SULFATE (325 MG) 325 MG/TAB TABLET GT SCH (10:16)
[2017-04-09] MEDS: VALPROIC ACID 250 MG/5 ML UDC GT SCH (10:17)
[2017-04-09] MEDS: FLUCONAZOLE (100 MG) 100 MG TABLET GT SCH (10:22)
[2017-04-09] MEDS: GABAPENTIN 100 MG CAPSULE GT SCH (10:22)
--- NOTE | 2017-04-09 11:00 | NUR ---
RN MS NOTES PT IN BED, NOT IN PAIN OR DISTRESS, SEEN BY BOBBY ELECTRONIC HEAT SEAL OPERATOR, DISCHARGE ORDER GIVEN, PT AND PT'S AL INFORMED OF MD'S ORDERS, VERBALIZED UNDERSTANDING.
[2017-04-09] MEDS: BLOOD SUGAR DIAGNOSTIC 1 EACH STRIP VI SCH ×2 (12:35→13:39)
[2017-04-09] MEDS: Z GUARD REMEDY 2 OZ OINT TP SCH (12:38)
--- NOTE | 2017-04-09 15:00 | NUR ---
RN MS NOTES PT IN BED, AWAKE, ALERT TO SELF, TRIES TO MUMBLE WORDS, INFORMED OF DISCHARGE ORDER FROM MD, PT NODS HER HEAD, NO SIGN OF PAIN OR DISCOMFORT, RESPIRATIONS NORMAL AND NOT LABORED, GT IN PLACE, NO BLEEDING NOTED TO SITE, DISCHARGE AND MEDICATION INSTRUCTIONS PROVIDED TO AL, VERBALIZED UNDERSTANDING, BELONGINGS ACCOUNTED FOR, REPORT GIVEN TO JOSE ROBB OF [facility], PICKED UP BY 2 AMBULANCE PERSONNEL, LEFT VIA GUERNEY IN STABLE CONDITION.
[2017-04-10] MEDS ORDERED: HEPARIN SODIUM, PORCINE 5000 UNITS/1 ML VIAL SQ SCH (09:00)
== END 2017-04-09 15:07 | DRG 871 ==
LOC: ER 13:12 → TELE 15:01 → MED 04-05 10:20
PROVIDERS: ADMIT Internal Medicine; ATTEND Internal Medicine
PROC: 05H533Z Insertion of Infusion Device into Right Subclavian Vein, Percutaneous Approach (ICD-10-PCS; 2017-04-05)
PROC: 30233N1 Transfusion of Nonautologous Red Blood Cells into Peripheral Vein, Percutaneous Approach (ICD-10-PCS; 2017-04-08)
PROC: 0DH63UZ Insertion of Feeding Device into Stomach, Percutaneous Approach (ICD-10-PCS; principal; 2017-04-08 09:00)
DX: A41.9 Sepsis, unspecified organism (principal); E43 Unspecified severe protein-calorie malnutrition; N17.0 Acute kidney failure with tubular necrosis; G92 Toxic encephalopathy; J18.9 Pneumonia, unspecified organism; E87.1 Hypo-osmolality and hyponatremia; I69.351 Hemiplegia and hemiparesis following cerebral infarction affecting right dominant side; D68.59 Other primary thrombophilia; B37.49 Other urogenital candidiasis; D63.8 Anemia in other chronic diseases classified elsewhere; E03.9 Hypothyroidism, unspecified; E78.5 Hyperlipidemia, unspecified; E87.5 Hyperkalemia; G40.909 Epilepsy, unspecified, not intractable, without status epilepticus; I25.10 Atherosclerotic heart disease of native coronary artery without angina pectoris; Z66 Do not resuscitate; F41.9 Anxiety disorder, unspecified; F32.9 Major depressive disorder, single episode, unspecified; E88.09 Other disorders of plasma-protein metabolism, not elsewhere classified; M62.50 Muscle wasting and atrophy, not elsewhere classified, unspecified site; I95.9 Hypotension, unspecified; Z68.30 Body mass index [BMI] 30.0-30.9, adult; L98.8 Other specified disorders of the skin and subcutaneous tissue; R13.10 Dysphagia, unspecified; Z74.01 Bed confinement status; Z79.899 Other long term (current) drug therapy; R65.20 Severe sepsis without septic shock; E11.42 Type 2 diabetes mellitus with diabetic polyneuropathy; E86.1 Hypovolemia; I10 Essential (primary) hypertension; G20 Parkinson's disease; F02.80 Dementia in other diseases classified elsewhere, unspecified severity, without behavioral disturbance, psychotic disturbance, mood disturbance, and anxiety
CPT/HCPCS: 36415; 43246; 71010-TC; 76770-TC; 80048-TC; 80053-TC; 80076-TC; 80202-TC; 81000-TC; 82272-TC; 82570-TC; 82962-TC; 83605-TC; 83735-TC; 84100-TC; 84300-TC; 84484-TC; 85025-TC; 85730-TC; 86850-TC; 86921-TC; 87040-TC; 87081-TC; 87086-TC; 92521; 92611-TC; 94799-TC; 97001-TC; A4216; A4606; J0456; J0690; J0696; J1644; J1815; J2543; J2704; J3370; J3475; J3490; J7030; J7040; J7050; J7060; P9016-BL; Z7610

== ENCOUNTER 2017-09-25 19:05 | Emergency (ER) | payer MEDICARE, OTHER ==
[~2017-09-25] VITALS: Ht 160 cm; Wt 72.6 kg
[~2017-09-25 19:05] MED LIST changes: -AMLO5TAB4 PO; -ASCO500C16 PO; -BENEFIBER PO; +BISA10SU8 RC; -CARB-93 PO; +CARB1TAB24 PO; -CLON0.1T PO; +CLOP75TA15 PO; -CRAN1TAB3 PO; +DOCU-141 PO; -DOCU-25 PO; -DONE10TA4 PO; +FERR-58 PO; -HYDR-552 PO; -HYDR25TA4 PO; +INSU100I19 SQ; +INSU100V3 SQ; -INSU100V7 SQ; -LACT1TAB20 PO; +LEVO100T9 PO; -LEVO200T PO; +MAGN400O6 PO; -MULT1CAP34 PO; +NA P133E RC; -OMEP20CA10 PO; -TYL2T PO; -VORT10TA PO
[2017-09-25] MEDS ORDERED: DIATR MEGLU/DIATRIZOATE SODIUM 30 ML BOTTLE (GASTROGRAPHIN) ONE (19:25)
[2017-09-25] MEDS ORDERED: DIATR MEGLU/DIATRIZOATE SODIUM 30 ML BOTTLE (GASTROGRAPHIN) PO ONE (19:30)
--- NOTE | 2017-09-25 20:03 | NUR ---
Patient discharged to SNF in stable condition VIA S AMBULANCE Written and verbal after care instructions given TO THE S CREW.
[2017-09-25 20:06] VITALS: BP 163/80
== END 2017-09-25 20:07 | disposition home or self-care (01) ==
LOC: ER 19:06
DX: K94.23 Gastrostomy malfunction (principal); E11.9 Type 2 diabetes mellitus without complications; E78.5 Hyperlipidemia, unspecified; I10 Essential (primary) hypertension; G62.9 Polyneuropathy, unspecified; Z79.4 Long term (current) use of insulin; Z86.73 Personal history of transient ischemic attack (TIA), and cerebral infarction without residual deficits; Z88.5 Allergy status to narcotic agent; Z88.6 Allergy status to analgesic agent; Z90.49 Acquired absence of other specified parts of digestive tract
CPT/HCPCS: 74000; 99284; A4606; Q9963 ×2; Z7610

== ENCOUNTER 2018-02-02 18:20 | Inpatient (IN) | payer MEDICARE, OTHER ==
[~2018-02-02] VITALS: Ht 167.6 cm; Wt 80.3 kg
[~2018-02-02 18:20] MED LIST changes: -FERR-58 PO; +FERR325T23 PO
--- NOTE | 2018-02-02 18:30 | NUR ---
BBPA [facility]: LEAKING G-TUBE. NAD NOTED. VSS. RR EVEN AND UNLABORED PENDING MD LAURA.
--- NOTE | 2018-02-02 19:28 | NUR ---
RECEIVED REPORT FROM CLARISSE DE LEON FOR ELLYN.
[2018-02-02 19:53] LABS: BASOPHILS # (AUTO) 0.2 /CMM (0.0-0.2); EOSINOPHILS % (AUTO) 0.7 % (0.0-6.0); HEMATOCRIT 38 % (33-45); HEMOGLOBIN 12.7 g/dL (11.5-14.8); LYMPHOCYTES # (AUTO) 1.5 /CMM (0.8-4.8); LYMPHOCYTES % (AUTO) 18.5 % (20.0-44.0); MEAN CORPUSCULAR HGB CONC 34 g/dl (31.0-36.0); MEAN CORPUSCULAR VOLUME 81 fL (82-100); MONOCYTES % (AUTO) 12.8 % (2.0-12.0); NEUTROPHILS # (AUTO) 5.4 /CMM (1.8-8.9); PLATELET COUNT (AUTO) 234 /CMM (150-450); RDW COEFFICIENT OF VARIATION 13.7 (11.5-15.0); RED BLOOD CELL COUNT(AUTO) 4.71 MIL/uL (4.0-5.2); WHITE BLOOD COUNT (AUTO) 8.2 K/uL (4.3-11.0)
[2018-02-02] MEDS ORDERED: IV NS 0.9% 500 ML BAG IV ONE (20:00)
[2018-02-02 20:12] LABS: ALANINE AMINOTRANSFERASE 10 U/L (12-78); ALBUMIN 1.8 g/dL (3.4-5.0); ALKALINE PHOSPHATASE 72 U/L (46-116); ASPARTATE AMINOTRANSFERASE 22 U/L (15-37); BILIRUBIN,DIRECT 0.1 mg/dL (0.0-0.2); BILIRUBIN,TOTAL 0.2 mg/dL (0.2-1.0); CALCIUM, SERUM 9.1 mg/dL (8.5-10.1); CARBON DIOXIDE 37 mmol/L (21-32); CHLORIDE 100 mmol/L (98-107); CREATININE 0.7 mg/dL (0.6-1.3); GLUCOSE 75 mg/dL (74-106); POTASSIUM 3.6 mmol/L (3.5-5.1); SODIUM SERUM 138 mmol/L (136-145); TOTAL PROTEIN, SERUM 6.4 g/dL (6.4-8.2); UREA NITROGEN, BLOOD 26 mg/dL (7-18)
--- NOTE | 2018-02-02 20:27 | NUR ---
314-1 MS UPDATED BED
[2018-02-02] MEDS ORDERED: IV NS 0.9% 1,000 ML IV PRN (21:42)
--- NOTE | 2018-02-02 21:50 | NUR ---
REPORT GIVEN TO MS CLARISSE LINDER FOR ELLYN.
[2018-02-02 22:00] VITALS: BP 170/89
[2018-02-02] MEDS ORDERED: BISACODYL SUPP (10 MG) 10 MG/SUPP.RECT SUPP.RECT RC PRN (22:00)
[2018-02-02] MEDS ORDERED: ONDANSETRON HCL/PF 4 MG/2 ML VIAL IVP PRN (22:00)
[2018-02-02] MEDS ORDERED: DEXTROSE 50%-WATER 50 ML DISP.SYRIN IV PRN (22:00)
[2018-02-02] MEDS ORDERED: INSULIN DETEMIR 100 UNIT/ML CARTRIDGE SQ SCH (22:00)
[2018-02-02] MEDS ORDERED: HYDROCODONE/APAP 5/325MG 1 EACH TABLET PO PRN (22:00)
[2018-02-02] MEDS ORDERED: MAG HYDROX/AL HYDROX/SIMETH 30 ML UDC PO PRN (22:00)
[2018-02-02] MEDS ORDERED: ACETAMINOPHEN 325 MG TABLET PO PRN (22:00)
[2018-02-02] MEDS ORDERED: Z GUARD REMEDY 2 OZ OINT TP PRN (22:00)
[2018-02-02] MEDS ORDERED: MAGNESIUM HYDROXIDE 30 ML UDC PO PRN (22:00)
--- NOTE | 2018-02-02 22:00 | NUR ---
admission notes: received report from karyn rn, pt brought to the unit via gurney, per report pt came from [facility] due to leaking gtube, dr jeter tried to reinsert but unsuccessful, er removed gtube of the pt. when pt got to the unit, pt no longer have gtube, only 4x4 gauze dressing covering the gtube site. pt has right wrist g 20 iv access patent and flushing well, on hl. pt will be npo. pt awake, alert but non verbal. belongings completed by employee service officer, vs taken and recorded, bed bath provided to the pt, skin assessment performed and took pictures of skin issues, printed and attached to chart. pt's paper works from facility attached to chart, also code status of pt is full cpr/full code.ble offloaded. side rails padded, suction set up secured, safety precautions for fall initiated, call light in reach, will continue monitoring pt.
--- NOTE | 2018-02-02 22:20 | NUR ---
RN NOTES: COPY ATTACHED TO CHART,PT HAS POLST DATED 2015, WILL FOLLOW UP WITH FAMILY IF THEY WANT TO CONTINUE PT ON DNR STATUS NEXT OF KIN ZULY CORTEZ CP NUMBER [phone] FOR THE MEAN TIME PT PLACED ON FULL CODE STATUS
--- NOTE | 2018-02-02 22:40 | NUR ---
BLOOD SUGAR 70, LEVEMIR NOT GIVEN: PT'S BLOOD SUGAR WAS CHECKED, RESULT IS 74, PT HAS SCHEDULED LEVEMIR, NOT ADMINISTERED AT THIS TIME DUE TO RISK OF HYPOGLYCEMIA, PT IS NPO FOR GTUBE PLACEMENT,
[2018-02-02 23:00] VITALS: BP 140/66
[2018-02-02] MEDS: BLOOD SUGAR DIAGNOSTIC 1 EACH STRIP IN SCH (23:16)
[2018-02-02] MEDS: INSULIN REGULAR, HUMAN 100 UNIT/ML 3 ML VIAL SQ PRN (23:17)
--- NOTE | 2018-02-02 23:17 | NUR ---
BLOOD SUGAR 74: BLOOD SUGAR 74, NO INSULIN GIVEN PER SLIDING SCALE, PT ON NPO FOR GTUBE PLACEMENT, PT ON IVF NS AT 75ML/HR.
--- NOTE | 2018-02-03 01:17 | NUR ---
rn notes: second cook and baker inpatient nursing aide currently in the unit, relayed about pt's blood sugar 74 and that pt on npo, per inpatient nursing aide to changed ivf to d5ns at 75ml/hr
[2018-02-03] MEDS: IV D5/ 0.9% NACL 1,000 ML IV PRN ×2 (01:27→18:54)
[2018-02-03] MEDS: BLOOD SUGAR DIAGNOSTIC 1 EACH STRIP IN SCH ×3 (05:40→17:09)
[2018-02-03] MEDS: INSULIN REGULAR, HUMAN 100 UNIT/ML 3 ML VIAL SQ PRN ×3 (05:41→17:09)
--- NOTE | 2018-02-03 05:42 | NUR ---
BS 152: PT BLOOD SUGAR IS 152, PT ON NPO PT IS FOR GTUBE PLACEMENT, NO INSULIN GIVEN AT THIS TIME, RISK FOR HYPOGLYCEMIA
[2018-02-03 06:28] LABS: BASOPHILS % (AUTO) 0.3 % (0.0-2.0); EOSINOPHILS % (AUTO) 0.6 % (0.0-6.0); HEMATOCRIT 35 % (33-45); LYMPHOCYTES # (AUTO) 1.9 /CMM (0.8-4.8); LYMPHOCYTES % (AUTO) 29.6 % (20.0-44.0); MEAN CORPUSCULAR HGB CONC 34 g/dl (31.0-36.0); MEAN CORPUSCULAR VOLUME 81 fL (82-100); MONOCYTES # (AUTO) 0.8 /CMM (0.1-1.30); MONOCYTES % (AUTO) 12.7 % (2.0-12.0); NEUTROPHILS # (AUTO) 3.6 /CMM (1.8-8.9); NEUTROPHILS % (AUTO) 56.8 % (43.0-81.0); PLATELET COUNT (AUTO) 205 /CMM (150-450); RDW COEFFICIENT OF VARIATION 14.4 (11.5-15.0); RED BLOOD CELL COUNT(AUTO) 4.31 MIL/uL (4.0-5.2); WHITE BLOOD COUNT (AUTO) 6.3 K/uL (4.3-11.0)
[2018-02-03 06:53] LABS: CALCIUM, SERUM 8.9 mg/dL (8.5-10.1); CARBON DIOXIDE 34 mmol/L (21-32); CHLORIDE 102 mmol/L (98-107); CREATININE 0.7 mg/dL (0.6-1.3); GLUCOSE 126 mg/dL (74-106); MAGNESIUM 1.8 mg/dL (1.8-2.4); PHOSPHORUS 3.6 mg/dL (2.5-4.9); POTASSIUM 3.2 mmol/L (3.5-5.1); SODIUM SERUM 141 mmol/L (136-145); UREA NITROGEN, BLOOD 23 mg/dL (7-18)
--- NOTE | 2018-02-03 07:00 | NUR ---
RN CLOSING NOTES: PT IN BED, AWAKE, REMAINS ON 2L OXYGEN VIA NC, NON VERBAL, BLE OFFLOADED, GTUBE SITE REMAINS COVERED WITH DRESSING. NO FACIAL GRIMACE NOTED, APPEARS CALM AND COMFORTABLE. IV ACCESS REMAINS PATENT AND FLUSHING WELL, INFUSING WITH D5NS AT 75ML/HR. REMAINS NPO. SIDE RAILS KEPT PADDED, SUCTION SET UP IN PLACED. WILL TELL DAY RN TO FOLLOW UP REGARDING PT'S POLST IF FAMILY WOULD LIKE TO CONTINUE BEING ON DNR.VS REMAINS STABLE, NEEDS ATTENDED. FOR GI CONSULT TODAY, FOR WOUND CARE CONSULT, SAFETY PRECAUTIONS FOR FALL REMAINS ENGAGED, CALL LIGHT IN REACH, WILL ENDORSE TO DAY RN FOR ELLYN.
[2018-02-03 07:01] LABS: CHOLESTEROL 144 mg/dL (<200); HDL CHOLESTEROL 43 mg/dL (40-60); LDL 90 mg/dL (0-99); THYROID STIMULATING HORMONE 0.313 uIU/mL (0.358-3.74); TRIGLYCERIDES 100 mg/dL (30-150)
[2018-02-03 08:00] VITALS: BP 159/78
--- NOTE | 2018-02-03 08:00 | NUR ---
m/s reproductive surgeon: initial assessment received pt in bed with eyes open, alert to self only with confusion and disorientation to time, place, and situation. g-tube stoma, dressing in place. no drainage noted. continue on ivf, infusing well. will continue to monitor.
[2018-02-03] MEDS: HEPARIN SODIUM, PORCINE 5000 UNITS/1 ML VIAL SQ SCH ×2 (08:58→21:00)
--- NOTE | 2018-02-03 09:00 | NUR ---
m/s floor press operator: notes for possible peg placement. held lovenox. hob elevated. will continue to monitor.
--- NOTE | 2018-02-03 10:00 | NUR ---
m/s archives director: md visit seen and examined by dr. brown at this time. md asked staff to call ct (next of kin) to get consent for egd with peg placement. left message to ct via answering machine. for gi consult and md will call as stated.
--- NOTE | 2018-02-03 10:10 | NUR ---
m/s health care coordinator: notes ct (uncle) called back and updated plan of care; informed him re: the need for egd with peg placement today or tomorrow and provided consent over the phone that includes anesthesia and blood products with another nurse as a witnessed.
--- NOTE | 2018-02-03 11:35 | NUR ---
m/s purchasing/receiving: notes bs [id number], pt remains npo. held coverage due to npo status. pending peg placement. will continue to monitor.
[2018-02-03] MEDS: POTASSIUM CL. PREMIX PERIPHER. 50 ML IV SCH ×4 (11:55→15:08)
--- NOTE | 2018-02-03 12:16 | NUR ---
WOUND CARE CONSULT: PT PRESENTS WITH INCONTINENCE AND SACRAL SCARRING. RECOMMENDATIONS MADE FOR SKIN PROTECTION. DISCUSSED WITH NURSING STAFF. PT TO BE PLACED ON CLAUS ISOFLEX LOW AIRLOSS BED. CURRENT KEVIN SCORE IS 9. DEFER TO MD FOR OLD G TUBE SITE. NURSING STAFF PROTECTING AREA WITH DRY DRESSING. WILL SEE PRWilla. IN AGREEMENT WITH PLAN OF CARE. Addendum: 02/03/18 at 1217 by JOSETTE WINTERS WNDNU Amended: Links added.
[2018-02-03 16:00] VITALS: BP 148/80
--- NOTE | 2018-02-03 18:10 | NUR ---
Patient resides at [facility] [phone]. Patient has hx of CVA with Right sided weakness. She requires total assist with adl's.Current plan is to dc back to SNF once discharge. Addendum: 02/03/18 at 1811 by BRITTA GARCIA RN Amended: Links added.
--- NOTE | 2018-02-03 18:30 | NUR ---
m/s automotive professional: notes pt remains npo. continue on ivf, infusing well. needs attended. hob elevated. will continue to monitor.
[2018-02-03 20:00] VITALS: BP_SYST 180; BP_SYST 185; BP_DIAS 100; BP_DIAS 76
[2018-02-03] MEDS ORDERED: hydrALAZINE HCL IV 20 MG VIAL IV ONE (20:00)
--- NOTE | 2018-02-03 20:00 | NUR ---
MS/RN OPENING NOTES PATIENT B/P ELEVATED AND RECHECK WITH MANUAL B/P CUFF AT 180/100, CONTACTED AND REPORTE PATIETN ELEVATED B/P , ON NPO STATUS WITH GTUBE DISLODGEMENT FOR PEG TO BE DONE ISREAL NG MD ORDER FOR ONE TIME HYDRALAZINE IV 10MG, ORDER RECEIVED AND CARRIED OUT. WILL MONITOR. ,D MADE AWARE IV FLUID WAS RUNNING AND ORDER TO HOLD FOR NOW. WILL MONITOR B/P AND RECHECK.
--- NOTE | 2018-02-03 20:45 | NUR ---
MS/RN NOTES PATIENT ALERT, ORIENTED, MONITORING FOR BLOOD PRESSURE, WILL MONITOR FOR RESULT OF B.P
--- NOTE | 2018-02-03 20:57 | NUR ---
MS/RN NOTES BLOOD PRESSURE RECHECK AT 200/80 , CAN OPEN EYES, NO GRIMACE, WILL CALL MD FOR ELEVATED B/P, UN RELIEVE BY IVP HYDRALAZINE FOR ELEVATED B/P
--- NOTE | 2018-02-03 21:40 | NUR ---
MD CONTACTED REPORTED ELEVATED B/P 198/91 , RECEHECK WITH MANUAL B/P, INFORMED MEASURES KEEP B/P DOWN, WITH IV HYDRALAZINE, MD WILL WRITE ORDER. ALSO REPORTED CRACKLES IN LUNGS, WITH NO LATEST XRAY MADE AWARE SAID WILL WRITE ORDER HIMSELF
[2018-02-03] MEDS: INSULIN GLARGINE, 100 UNIT/ML CARTRIDGE SQ SCH (22:00)
--- NOTE | 2018-02-03 22:01 | NUR ---
MD ORDER FOR ELEVATED SBP TO GIVE VASOTEC INJ W/ PARAMETER VERIFIED IF SBP>160. PHARMACY INFORMED.
[2018-02-03] MEDS: ENALAPRILAT INJ (1.25 MG/ML) 1.25 MG/ML VIAL IV PRN (22:10)
--- NOTE | 2018-02-03 22:26 | NUR ---
ms/rn notes monitoring for any changes and blood sugar check at 150, on npo for gtube placement,
[2018-02-03 23:19] VITALS: BP 170/80
[2018-02-04 00:03] VITALS: BP 168/72
[2018-02-04] MEDS: BLOOD SUGAR DIAGNOSTIC 1 EACH STRIP IN SCH ×4 (00:07→17:09)
--- NOTE | 2018-02-04 00:15 | NUR ---
SBP RECHECK 168/70
[2018-02-04] MEDS: ENALAPRILAT INJ (1.25 MG/ML) 1.25 MG/ML VIAL IV PRN ×2 (04:00→17:10)
--- NOTE | 2018-02-04 04:00 | NUR ---
SBP RECHECK AT 180/100 ADMINISTER NEEDED IV VASOTECH PER MD ORDER WILL MONITOR
[2018-02-04 04:59] VITALS: BP 159/78
--- NOTE | 2018-02-04 05:39 | NUR ---
NO SURGERY SCHEDULED THIS AM PLANNED, RECEIVED CONFIRMATION THIS AM POSSIBLE ISREAL AM.
[2018-02-04 06:40] LABS: EOSINOPHILS % (AUTO) 0.7 % (0.0-6.0); HEMATOCRIT 34 % (33-45); HEMOGLOBIN 11.6 g/dL (11.5-14.8); LYMPHOCYTES % (AUTO) 23.1 % (20.0-44.0); MEAN CORPUSCULAR HGB CONC 34 g/dl (31.0-36.0); MEAN CORPUSCULAR VOLUME 81 fL (82-100); MONOCYTES # (AUTO) 1.2 /CMM (0.1-1.30); MONOCYTES % (AUTO) 13.7 % (2.0-12.0); NEUTROPHILS # (AUTO) 5.4 /CMM (1.8-8.9); NEUTROPHILS % (AUTO) 62.5 % (43.0-81.0); PLATELET COUNT (AUTO) 246 /CMM (150-450); RDW COEFFICIENT OF VARIATION 14.3 (11.5-15.0); RED BLOOD CELL COUNT(AUTO) 4.22 MIL/uL (4.0-5.2); WHITE BLOOD COUNT (AUTO) 8.7 K/uL (4.3-11.0)
--- NOTE | 2018-02-04 06:45 | NUR ---
328-2 PATIENT IN BED, HOB ELEVATED MONITOIRNG SBP M KEEP COMFORTABLE. ON OXYGEN AT 2L VIA NS, WILL MONITOR. SKIN WARM TO TOUCH, BED IN LOCK POSITION, CALL LIGHTS WITHIN REACH.WILL ENDORSE TO AM RN FOR ELLYN.
[2018-02-04 06:51] LABS: CALCIUM, SERUM 8.7 mg/dL (8.5-10.1); CARBON DIOXIDE 34 mmol/L (21-32); CHLORIDE 104 mmol/L (98-107); CREATININE 0.7 mg/dL (0.6-1.3); GLUCOSE 127 mg/dL (74-106); POTASSIUM 3.5 mmol/L (3.5-5.1); SODIUM SERUM 142 mmol/L (136-145); UREA NITROGEN, BLOOD 17 mg/dL (7-18)
--- NOTE | 2018-02-04 07:38 | NUR ---
MS RN NOTES PATIENT RECEIVED RESTING INSIDE ROOM, AWAKE, ALERT, OPENS EYES AND MAKES EYE CONTACT WITH STIMULI. RESPONDS TO VERBAL AND TACTILE STIMULI, PATIENT NON-VERBAL, FLAT AFFECT, DENIES ANY PAIN OR DISCOMFORT. NO FACIAL GRIMACE NOTED AT THIS TIME. IV SITE INTACT AND PATENT, NO SWELLING OR BLEEDING NOTED AT THIS TIME. MAINTAINED ASPIRATION AND SEIZURE PRECAUTIONS, BILATERAL SIDE RAILS PADDED, MAINTAINED HOB ELEVATED AT 45. WILL CONTINUE TO MONITOR. BED LOCKED AND IN LOW POSITION. BILATERAL UPPER SIDE RAILS UP AND LOCKED. CALL LIGHT WITHIN EASY REACH
[2018-02-04 08:00] VITALS: BP 156/80
[2018-02-04] MEDS: HEPARIN SODIUM, PORCINE 5000 UNITS/1 ML VIAL SQ SCH ×2 (09:00→21:00)
--- NOTE | 2018-02-04 10:30 | NUR ---
MS RN NOTES PATIENT SEEN AND EXAMINED BY DR. GR. ATTEMPTED TO INSERT ORTEGA CATHETER ON GT SITE, INSERTED 15F CATHETER WITH SUCCESS, NO BLEEDING NOTED, CATHETER CLAMPED. WITH NEW ORDER FROM DR. GR FOR ABD XRAY FOR GT PLACEMENT. ORDER NOTED AND CARRIED OUT. RADIOLOGY MADE AWARE OF XRAY ORDER. PATIENT REMAINS CALM AND RELAXED. NO CHANGES IN LOC NOTED. NO SOB OR ACUTE DISTRESS NOTED.WILL CONTINUE TO MONITOR
--- NOTE | 2018-02-04 15:49 | NUR ---
MS RN NOTES DR. WEBSTER (GI) PRESENT AT UNIT, PATIENT SEEN AND EXAMINED. PLACED NEW GT. ATTEMPTED TO INSERT 20F WITH LUBRICATION WITH NO SUCCESS, INSERTED 18F WITH LUBRICATION SUCCESSFULLY. PATIENT TOLERATED PROCEDURE WELL. DR. WEBSTER WITH NEW ORDER FOR ABD XRAY FOR GT PLACEMENT. ORDER NOTED AND CARRIED OUT. RADIOLOGY MADE AWARE. WILL CONTINUE TO MONITOR.
[2018-02-04 16:00] VITALS: BP 163/89
[2018-02-04] MEDS ORDERED: DIATR MEGLU/DIATRIZOATE SODIUM 30 ML BOTTLE (GASTROGRAPHIN) ONE (16:04)
[2018-02-04] MEDS: INSULIN REGULAR, HUMAN 100 UNIT/ML 3 ML VIAL SQ PRN (17:10)
--- NOTE | 2018-02-04 18:00 | NUR ---
MS RN NOTES RECEIVED ABD XRAY RESULTS AND MADE DR WEBSTER AWARE, GAVE OK TO USE GT FOR FEEDING. PATIENT WAS TAKING GLUCERNA 1.5 5OCC/HR X 20 HOURS AT [facility] PER RECORD, DR. GR MADE AWARE AND GAVE OK TO START GLUCERNA 1.2 AT 50CC/HR X 20 HOURS. ORDER NOTED AND CARRIED OUT. FNS MADE AWARE, AWAITING FOR GLUCERNA.
[2018-02-04] MEDS ORDERED: GLUCERNA 1.2 1,000 ML BOTTLE NG PRN (18:30)
--- NOTE | 2018-02-04 18:34 | NUR ---
MS RN NOTES PATIENT RESTING INSIDE ROOM. AWAKE, ALERT, OPENS EYES AND MAKES EYE CONTACT ON STIMULI. RESPONDS TO VERBAL AND TACTILE STIMULI. BREATHING EVEN AND UNLABORED. NO SOB OR ACUTE DISTRESS NOTED. NO CHANGES IN LOC NOTED AT THIS TIME. PATIENT REMAINS AFEBRILE, SKIN DRY AND WARM TO TOUCH. NO BLEEDING NOTED ON GT SITE, DRESSING IN PLACE. MAINTAINED ASPIRATION PRECAUTION, MAINTAINED HOB ELEVATED AT 45. WILL ENDORSE TO INCOMING SHIFT FOR ELLYN. BED LOCKED AND IN LOW POSITION. BILATERAL UPPER SIDE RAILS UP AND LOCKED. CALL LIGHT WITHIN EASY REACH
--- NOTE | 2018-02-04 19:30 | NUR ---
MS RN OPENING NOTES: PATIENT IN BED, AWAKE, OPENS EYES SPONTANEOUSLY TO NAME, NON VERBAL. BREATHING EVEN AND UNLABORED, BUT NOTED OCCASIONAL COUGHING. SUCTIONED MOUTH PRN. PIV OVER R WRIST G20 INTACT AND PATENT, INFUSING WELL WITH D5NS RUNNING AT 75 ML/HR. [address] OVER MID UPPER ABDOMEN, PER REPORT IT WAS PLACED THIS AFTERNOON BY DR WEBSTER. ASSESSED FOR PATENCY BY INJECTING AIR, NOTED POSITIVE FOR AIR HER, ALSO ABLE TO FLUSH WITH WATER WITH EASE. FEEDING OF GLUCERNA 1.2 AT BEDSIDE, TO BE RESTARTED. PROVIDED FOR COMFORT AND SAFETY. BED IN LOWEST AND LOCKED POSITION, SIDERAILS UP X 3, BED ALARMS ON. WILL CONT TO MONITOR.
[2018-02-04 20:00] VITALS: BP 186/91
--- NOTE | 2018-02-04 20:19 | NUR ---
RN NOTES: NOTED 18 FR GTUBE IN UPPER MID ABDOMEN, NO BLOODY OR PURULENT DISCHARGE NOTED. XRAY POST PEG PLACEMENT SHOWED GT WELL PLACED IN FUNDUS OF STOMACH. CHECKED FOR PATENCY BY AUSCULTATION AND ASPIRATION, POSITIVE PLACEMENT NOTED. FLUSHED WITH WATER WITH EASE. RESTARTED GT FEEDING OF GLUCERNA, STARTED ON 25 ML/HR FOR NOW TO REASSESS FOR TOLERANCE. MAINTAINED HOB ELEVATED.
--- NOTE | 2018-02-04 20:35 | NUR ---
RN NOTES: CALLED LUZ DIESEL ENGINE INSPECTOR RE PATIENT'S BP WHICH IS STILL ELEVATED 3 HRS AFTER VASOTEC IV 1.25 MG WAS GIVEN. BP IS 186/91 BY AUTOMATIC CUFF, RECHECKED MANUALLY AT 180/100. PER LUZ, GIVE HYDRALAZINE 10 MG IV X 1 DOSE NOW, THEN RESTART HOME MEDS OF LISINOPRIL 20 MG PER GT DAILY, FIRST DOSE TO GIVE TONIGHT. ALSO, SINCE PATIENT HAD JUST HAD GTUBE REPLACED THIS AFTERNOON, ASKED DIESEL ENGINE INSPECTOR IF OK TO GIVE HEPARIN 5000 U SCHEDULED FOR TONIGHT, PER LUZ, HOLD DOSE FOR TONIGHT, RESTART IN AM. ALSO, SINCE THERE WAS A PREVIOUS NOTE FROM DR GR TO D'C IV FLUIDS ONCE FEEDING HAS BEEN RESTARTED, ASKED LUZ DIESEL ENGINE INSPECTOR IF OK TO KEEP IV FLUID FOR NOW, SINCE PATIENT WAS STARTED ON 25 ML/HR WITH GOAL OF 50 ML/HR TUBE FEEDING RATE, TO CONSTANTLY REASSESS FOR TOLERANCE, PER DIESEL ENGINE INSPECTOR, KEEP PRESENT IV FLUID FOR NOW AND D'C ONCE PT HAS REACHED GOAL RATE. WHEN ASKED IF D5NS IS OK, PER DIESEL ENGINE INSPECTOR, OK TO CONTINUE THIS IVF UNTIL PT ABLE TO TOLERATE 50 ML/HR RATE. ALL ORDERS NOTED AND CARRIED OUT.
[2018-02-04] MEDS ORDERED: hydrALAZINE HCL IV 20 MG VIAL IV ONE (21:00)
--- NOTE | 2018-02-04 21:52 | NUR ---
RN NOTES: HEPARIN 5000 UNITS HELD FOR TONIGHT PER LUZ MYERS NP, TO RESTART TOMORROW, SINCE PATIENT HAD JUST HAD GT REPLACEMENT DONE THIS AFTERNOON.
[2018-02-04] MEDS: INSULIN GLARGINE, 100 UNIT/ML CARTRIDGE SQ SCH (22:00)
[2018-02-04] MEDS: LISINOPRIL (20MG) 20 MG TABLET PO SCH (22:00)
--- NOTE | 2018-02-04 22:30 | NUR ---
RN NOTES: BLOOD SUGAR CHECKED AT 151 MG/DL, PATIENT HAS GT FEEDING OF GLUCERNA RUNNING AT 25 ML/HR. PATIENT IS TOLERATING FEEDING WELL, NO RESIDUALS NOTED. HOWEVER, SCHEDULED LANTUS 25 U SQ NOT GIVEN FOR TONIGHT SINCE GOAL RATE FOR TUBE FEEDING HAS NOT YET BEEN REACHED. WILL CONT TO MONITOR.
--- NOTE | 2018-02-04 22:33 | NUR ---
RN NOTES: CHECKED FOR RESIDUAL AT THIS TIME FROM GT, NONE NOTED, INCREASED FEEDING RATE TO 30 ML/HR.
[2018-02-05] MEDS: BLOOD SUGAR DIAGNOSTIC 1 EACH STRIP IN SCH ×4 (00:15→18:05)
[2018-02-05] MEDS: INSULIN REGULAR, HUMAN 100 UNIT/ML 3 ML VIAL SQ PRN ×4 (00:17→18:04)
[2018-02-05] MEDS ORDERED: INSULIN GLARGINE, 100 UNIT/ML CARTRIDGE SQ ONE (00:20)
--- NOTE | 2018-02-05 00:20 | NUR ---
RN NOTES: BLOOD SUGAR CHECKED AT 144 MG/DL, ADMINISTERED 2 UNITS REGULAR INSULIN PER SCALE.
[2018-02-05 00:31] VITALS: BP 153/79
[2018-02-05 04:58] VITALS: BP 107/53
--- NOTE | 2018-02-05 06:10 | NUR ---
RN NOTES: BLOOD SUGAR CHECKED AT 162 MG/DL, ADMINISTERED 3 UNITS REGULAR INSULIN SQ PER SCALE. PATIENT ON GT FEEDING OF GLUCERNA 1.2 RUNNING AT 50 ML/HR, PATIENT TOLERATING FEEDING WELL. WILL CONT TO MONITOR.
--- NOTE | 2018-02-05 06:48 | NUR ---
MS RN CLOSING NOTES: PATIENT IN BED, AWAKE BUT NON VERBAL, ON O2 AT 2LPM VIA NC, BREATHING EVEN AND UNLABORED. APPEARS CALM AND IN NO DISTRESS, ABLE TO SLEEP WELL THROUGH NIGHT. PIV OVER R WRIST G20 INTACT AND PATENT TO FLUSH. GT IN PLACE, WITH FEEDING OF GLUCERNA 1.2 RUNNING AT 50 ML/HR, PATIENT ABLE TO TOLERATE FEEDING WELL WITH NO RESIDUALS NOTED. DUE MEDS GIVEN. PROVIDED FOR COMFORT AND SAFETY. BED IN LOWEST AND LOCKED POSITION, SIDERAILS UP X 3, CALL LIGHT WITHIN REACH. WILL ENDORSE TO AM RN FOR ELLYN.
--- NOTE | 2018-02-05 07:20 | NUR ---
MS/RN OPENING NOTE PATIENT IN BED AWAKE AND NON-VERBAL. RESPIRATION REGULAR AND UNLABORED. ON O2 VIA NC AT 2L/MIN. NI S/S DISTRESS. NO MANIFESTATION OF PAIN. RIGHT WRIST G 20 PATENT AND SALINE LOCKED. GT FEEING GLUCERNA 1.2 RUNNING AT 50ML/HR. PATIENT TOLERATING FEEDING WELL. HEAD OF THE BED IS ELEVATED TO PREVENT ASPIRATION. BED LOW AND LOCKED. SIDE RAILS UP X3. CALL LIGHT WITHIN REACH. WILL CONTINUE TO MONITOR.
[2018-02-05 07:32] LABS: BASOPHILS % (AUTO) 0.2 % (0.0-2.0); EOSINOPHILS % (AUTO) 0.2 % (0.0-6.0); HEMATOCRIT 32 % (33-45); LYMPHOCYTES # (AUTO) 1.9 /CMM (0.8-4.8); LYMPHOCYTES % (AUTO) 19.8 % (20.0-44.0); MEAN CORPUSCULAR HGB CONC 34 g/dl (31.0-36.0); MEAN CORPUSCULAR VOLUME 81 fL (82-100); MONOCYTES # (AUTO) 1.3 /CMM (0.1-1.30); MONOCYTES % (AUTO) 13.9 % (2.0-12.0); NEUTROPHILS # (AUTO) 6.4 /CMM (1.8-8.9); NEUTROPHILS % (AUTO) 65.9 % (43.0-81.0); PLATELET COUNT (AUTO) 271 /CMM (150-450); RDW COEFFICIENT OF VARIATION 13.9 (11.5-15.0); RED BLOOD CELL COUNT(AUTO) 3.99 MIL/uL (4.0-5.2); WHITE BLOOD COUNT (AUTO) 9.6 K/uL (4.3-11.0)
[2018-02-05 07:36] LABS: CALCIUM, SERUM 8.8 mg/dL (8.5-10.1); CARBON DIOXIDE 33 mmol/L (21-32); CHLORIDE 109 mmol/L (98-107); CREATININE 0.9 mg/dL (0.6-1.3); GLUCOSE 175 mg/dL (74-106); POTASSIUM 3.3 mmol/L (3.5-5.1); SODIUM SERUM 144 mmol/L (136-145); UREA NITROGEN, BLOOD 19 mg/dL (7-18)
[2018-02-05 08:00] VITALS: BP 167/90
[2018-02-05] MEDS: LISINOPRIL (20MG) 20 MG TABLET PO SCH (09:34)
[2018-02-05] MEDS: HEPARIN SODIUM, PORCINE 5000 UNITS/1 ML VIAL SQ SCH ×2 (09:36→21:29)
--- NOTE | 2018-02-05 10:04 | NUR ---
MS/RN NOTE DR GR IS MADE AWARE OF PATIENT HAVING EPISODES OF COUGH WITH WHITE THICK PHLEGM. MD WITH NO NEW ORDER.
[2018-02-05] MEDS ORDERED: POTASSIUM CHLORIDE 20 MEQ TAB.PRT.SR PO SCH (11:00)
[2018-02-05] MEDS: ENALAPRILAT INJ (1.25 MG/ML) 1.25 MG/ML VIAL IV PRN ×2 (13:25→20:16)
--- NOTE | 2018-02-05 13:25 | NUR ---
MS/RN NOTE PATIENT`S BLOOD PRESSURE 164/95. VASOTEC 1.25 MG IV GIVEN. WILL CONTINUE TO MONITOR.
--- NOTE | 2018-02-05 14:02 | NUR ---
MS/RN NOTE PATIENT`S BLOOD PRESSURE 166/90 AND PULSE 82. WILL CONTINUE TO MONITOR.
--- NOTE | 2018-02-05 14:20 | NUR ---
MS/RN NOTE PATIENT`S BLOOD PRESSURE 179/76 AND PUL[address]TA[address] GR FOR NEW ORDER. WAITING FOR REPLY. WILL CONTINUE TO MONITOR. PATIENT IN NO APPARENT DISTRESS.
[2018-02-05] MEDS ORDERED: hydrALAZINE HCL IV 20 MG VIAL IV STA (14:51)
--- NOTE | 2018-02-05 14:56 | NUR ---
MS/RN NOTE RECEIVED NEW ORDER FROM DR GR. THE ORDER NOTED AND CARRIED OUT.
--- NOTE | 2018-02-05 15:02 | NUR ---
MS/RN NOTE 1458 BP 184/92 AND PULSE 75. ORDERED APRESOLINE 10 MG IV PUSH GIVEN PER ORDER. WILL CONTINUE TO MONITOR.
[2018-02-05 16:00] VITALS: BP 159/89
--- NOTE | 2018-02-05 18:20 | NUR ---
MS/RM NOTE PATIENT BLOOD AT 156/72, PULSE 74. PATIENT IN STABLE CONDITION.
--- NOTE | 2018-02-05 18:46 | NUR ---
MS/RN CLOSING NOTE PATIENT ALERT AND ORIENTED X1. RESPIRATION REGULAR AND UNLABORED. O2 SATURATION AT 95% WITH O2 AT 2L/MIN VIA NC. NO MANIFESTATION OF PAIN. RIGHT WRIST G 20 PATENT AND SALINE LOCKED. BED LOW AND LOCKED. SIDE RAILS UP X3. CALL LIGHT WITHIN REACH. WILL ENDORSE TO STOCK CUTTER.
--- NOTE | 2018-02-05 19:31 | NUR ---
MS RN OPENING NOTES RECEIVED PT SITTING UPRIGHT IN BED. PT IS NONVERBAL WITH SPONTANEOUS EYE OPENING. RESPIRATIONS ARE EVEN AND UNLABORED, NOT IN ANY ACUTE DISTRESS NOTED. NO FACIAL GRIMACING NOTED. SAFETY MEASURES ARE IN PLACE. BED IS IN ITS LOWEST AND LOCKED POSITION. WILL CONTINUE TO MONITOR THROUGHOUT SHIFT.
[2018-02-05 20:00] VITALS: BP_SYST 147; BP_SYST 185; BP_DIAS 73; BP_DIAS 86
--- NOTE | 2018-02-05 20:16 | NUR ---
MS RN NOTES BP 185/73, ADMINISTERED VASOTEC PRN. WILL MONITOR FOR EFFECTIVENESS. PT IS NOT IN ANY APPARENT DISTRESS AT THIS TIME.
--- NOTE | 2018-02-05 20:30 | NUR ---
MS RN NOTES RECEIVED A CALL FROM [facility] WITH EXPECTED ARRIVAL AT 2144.
[2018-02-05] MEDS ORDERED: hydrALAZINE HCL IV 20 MG VIAL IV ONE (21:00)
--- NOTE | 2018-02-05 21:00 | NUR ---
MS RN NOTES BP NOTED 170/72. NOTIFIED LUZ MYERS NP WITH NEW ORDERS FOR HYDRALAZINE 10MG IV ONCE. ORDERS READ BACK AND CARRIED OUT. WILL CONTINUE TO MONITOR THE PT. PT IS IN NO APPARENT DISTRESS AT THIS TIME.
[2018-02-05] MEDS: INSULIN GLARGINE, 100 UNIT/ML CARTRIDGE SQ SCH (22:00)
[2018-02-05 22:38] VITALS: BP 182/71
--- NOTE | 2018-02-05 23:25 | NUR ---
GLOBAL CATEGORY MANAGER NOTE PT DISCHARGE TO [facility], P/U BY [facility]IA [employer]. GAVE REPORT TO RN MANAGEMENT AIDE VENUS WITH THE ACCEPTANCE OF BP 151/68, HR 67. PT KEPT CLEAN AND DRY. PT IS NONVERBAL WITH SPONTANEOUS EYE OPENING. PUPILS ARE REACTIVE TO LIGHT. RESPIRATIONS ARE EVEN AND UNLABORED, NOT IN ANY ACUTE DISTRESS NOTED. GT SITE INTACT, KEPT CLEAN AND DRY. IV ACCESS REMOVED, PRESSURE APPLIED TO SITE. ALL BELONGINGS TAKEN WITH PT. PT LEFT IN STABLE CONDITION ACCOMPANIED BY 2 EMT PERSONNEL.
== END 2018-02-05 23:25 | DRG 393 ==
LOC: ER 18:24 → MED 21:41
PROVIDERS: ADMIT Nurse Practitioner Acute Care; ATTEND Nurse Practitioner Acute Care
PROC: 0D20XUZ Change Feeding Device in Upper Intestinal Tract, External Approach (ICD-10-PCS; principal; 2018-02-04)
DX: K94.23 Gastrostomy malfunction (principal); E43 Unspecified severe protein-calorie malnutrition; N17.0 Acute kidney failure with tubular necrosis; R53.2 Functional quadriplegia; R13.10 Dysphagia, unspecified; I69.351 Hemiplegia and hemiparesis following cerebral infarction affecting right dominant side; Y83.3 Surgical operation with formation of external stoma as the cause of abnormal reaction of the patient, or of later complication, without mention of misadventure at the time of the procedure; Y82.9 Unspecified medical devices associated with adverse incidents; Y92.129 Unspecified place in nursing home as the place of occurrence of the external cause; R26.9 Unspecified abnormalities of gait and mobility; E03.9 Hypothyroidism, unspecified; E78.5 Hyperlipidemia, unspecified; E11.9 Type 2 diabetes mellitus without complications; F03.90 Unspecified dementia, unspecified severity, without behavioral disturbance, psychotic disturbance, mood disturbance, and anxiety; Z90.49 Acquired absence of other specified parts of digestive tract; Z88.5 Allergy status to narcotic agent; Z88.8 Allergy status to other drugs, medicaments and biological substances; I10 Essential (primary) hypertension; I25.10 Atherosclerotic heart disease of native coronary artery without angina pectoris; G40.909 Epilepsy, unspecified, not intractable, without status epilepticus; F32.9 Major depressive disorder, single episode, unspecified; Z79.4 Long term (current) use of insulin; L89.899 Pressure ulcer of other site, unspecified stage
CPT/HCPCS: 36415; 74018; 80048-TC; 80061-TC; 80076-TC; 82962-TC; 83735-TC; 84100-TC; 84443-TC; 85025-TC; 86850-TC; 87081-TC; A4606; A6402; J0360; J1644; J1815; J3480; J3490; J7030; J7040; J7042; Q9963; Z7610

== ENCOUNTER 2021-04-20 06:09 | Inpatient (IN) | payer MEDICARE, OTHER ==
[~2021-04-20] VITALS: Ht 167.6 cm; Wt 77.1 kg
[~2021-04-20 06:09] MED LIST changes: +DOCU-141 GT; -DOCU-141 PO; -LISI-603 PO; +LISI20TA30 PO
--- NOTE | 2021-04-20 06:12 | NUR ---
Pt bibra c/o bradicardia and left arm redness and pain. Pt aaox4 breathing evenly and unlabored. Pt attached to rn cardiac rehab and pox. Skin warm and dry. Upon asssessment, pt heartrate in the 40s and does have redness on the left arm. MD at bedside for eval. Pt given blanket and call light within reach
--- NOTE | 2021-04-20 06:20 | NUR ---
left hand 20g iv initiated. blood obtained and sent to lab
--- NOTE | 2021-04-20 06:25 | NUR ---
xray at bedside
--- NOTE | 2021-04-20 06:26 | NUR ---
called lab for covid swab
[2021-04-20 06:43] LABS: BASOPHILS # (AUTO) 0.1 K/uL (0.0-0.2); BASOPHILS % (AUTO) 0.8 % (0.0-2.0); EOSINOPHILS % (AUTO) 7.4 % (0.0-6.0); HEMATOCRIT 34 % (33-45); HEMOGLOBIN 11.1 g/dL (11.5-14.8); LYMPHOCYTES # (AUTO) 1.6 K/uL (0.8-4.8); LYMPHOCYTES % (AUTO) 14.3 % (20.0-44.0); MEAN CORPUSCULAR HGB CONC 33 g/dl (31.0-36.0); MEAN CORPUSCULAR VOLUME 81 fL (82-100); MONOCYTES # (AUTO) 0.9 K/uL (0.1-1.30); MONOCYTES % (AUTO) 7.8 % (2.0-12.0); NEUTROPHILS # (AUTO) 7.7 K/uL (1.8-8.9); NEUTROPHILS % (AUTO) 69.7 % (43.0-81.0); PLATELET COUNT (AUTO) 283 K/uL (150-450); RED BLOOD CELL COUNT(AUTO) 4.16 MIL/uL (4.0-5.2)
[2021-04-20 06:55] LABS: ALANINE AMINOTRANSFERASE 20 U/L (12-78); ALKALINE PHOSPHATASE 107 U/L (46-116); ASPARTATE AMINOTRANSFERASE 24 U/L (15-37); BILIRUBIN,DIRECT 0.1 mg/dL (0.0-0.2); BILIRUBIN,TOTAL 0.3 mg/dL (0.2-1.0); CARBON DIOXIDE 35 mmol/L (21-32); CHLORIDE 96 mmol/L (98-107); CREATININE 1.5 mg/dL (0.6-1.3); GLUCOSE 241 mg/dL (74-106); POTASSIUM 4.1 mmol/L (3.5-5.1); SODIUM SERUM 131 mmol/L (136-145); TOTAL PROTEIN, SERUM 6.6 g/dL (6.4-8.2); UREA NITROGEN, BLOOD 76 mg/dL (7-18)
--- NOTE | 2021-04-20 07:05 | NUR ---
gave report to CLARISSE Diaz for dale
--- NOTE | 2021-04-20 07:14 | NUR ---
MOVE SHEET SUBMITTED
--- NOTE | 2021-04-20 07:23 | NUR ---
[facility] CALLED LICENSED EMBALMER PAGED.
[2021-04-20 07:27] LABS: BILIRUBIN,URINE NEGATIVE (NEGATIVE); COLOR,URINE YELLOW (YELLOW); LEUKOCYTE ESTERASE ,URINE MODERATE (NEGATIVE); NITRITE, URINE NEGATIVE (NEGATIVE); PROTEIN,URINE >=300 mg/dl (NEGATIVE); UGLUCOSE 100 MG/DL mg/dL (NEGATIVE); UROBILINOGEN,URINE 0.2 EU/dL (0.2)
[2021-04-20] MEDS ORDERED: ACET650S11 RC (07:31)
[2021-04-20] MEDS ORDERED: HYDR12.55 GT (07:31)
[2021-04-20] MEDS ORDERED: GLYC2TAB21 GT (07:31)
[2021-04-20] MEDS ORDERED: AMIN30LI27 GT (07:31)
[2021-04-20] MEDS ORDERED: NUT.237L31 GT (07:31)
[2021-04-20] MEDS ORDERED: AMLO-212 GT (07:31)
[2021-04-20] MEDS ORDERED: MULT-447 GT (07:31)
[2021-04-20] MEDS ORDERED: ASCO-352 GT (07:31)
[2021-04-20] MEDS ORDERED: ACET650S26 GT (07:31)
--- NOTE | 2021-04-20 07:31 | NUR ---
DR. LEIGH WILL CALL BACK IN 15 MINS.
[2021-04-20 07:35] LABS: BACTERIA,URINE Few /HPF (None Seen); SQUAMOUS EPITHELIAL CELL,UR Few /HPF (None Seen)
[2021-04-20] MEDS ORDERED: PIPERACILLIN /TAZOBACTAM 3.375 G in IV D5W 50 ML IV ONE (08:00)
[2021-04-20] MEDS ORDERED: MORPHINE SULFATE INJ 2 MG/ML DISP.SYRIN IV PRN (09:00)
[2021-04-20] MEDS ORDERED: LABETALOL 20 MG/4 ML VIAL IV PRN (09:00)
[2021-04-20] MEDS ORDERED: ACETAMINOPHEN 325 MG TABLET PO PRN (09:00)
[2021-04-20] MEDS ORDERED: ONDANSETRON HCL/PF 4 MG/2 ML VIAL IVP PRN (09:00)
[2021-04-20] MEDS ORDERED: MAG HYDROX/AL HYDROX/SIMETH 30 ML UDC PO PRN (09:00)
[2021-04-20] MEDS ORDERED: Z GUARD REMEDY 2 OZ OINT TP PRN (09:00)
[2021-04-20] MEDS ORDERED: ENOXAPARIN SODIUM 30 MG/0.3 ML DISP.SYRIN ONE (10:35)
[2021-04-20] MEDS: ENOXAPARIN SODIUM 30 MG/0.3 ML DISP.SYRIN SQ SCH (10:42)
[2021-04-20] MEDS ORDERED: ACETAMINOPHEN 650 MG/SUPP.RECT RC PRN (11:00)
[2021-04-20] MEDS ORDERED: ACETAMINOPHEN 650 MG/20.3 ML UDC GT PRN (11:00)
[2021-04-20] MEDS ORDERED: AMLODIPINE BESYLATE 5 MG TABLET GT SCH (11:00)
[2021-04-20] MEDS ORDERED: BISACODYL SUPP (10 MG) 10 MG/SUPP.RECT SUPP.RECT RC PRN (11:00)
[2021-04-20] MEDS ORDERED: hydrALAZINE HCL IV 20 MG VIAL IV PRN (11:00)
[2021-04-20] MEDS ORDERED: MAGNESIUM HYDROXIDE 30 ML UDC GT PRN (11:00)
[2021-04-20] MEDS ORDERED: GLUCERNA 1.5 1,000 ML BOTTLE GT PRN (11:00)
[2021-04-20] MEDS ORDERED: LEVOTHYROXINE SODIUM 175 MCG TABLET PO SCH (11:00)
[2021-04-20] MEDS ORDERED: NA PHOS,M-B/NA PHOS,DI-BA 1 EA ENEMA RC PRN (11:00)
[2021-04-20] MEDS ORDERED: LEVOTHYROXINE SODIUM 175 MCG TABLET GT SCH (11:04)
[2021-04-20] MEDS ORDERED: MAG HYDROX/AL HYDROX/SIMETH 30 ML UDC GT PRN (11:04)
--- NOTE | 2021-04-20 11:45 | NUR ---
wheeled patient via gurney accompanied by RN and emt in no distress. RN assigned at bedside to assume care.
[2021-04-20 12:00] VITALS: BP 103/73
--- NOTE | 2021-04-20 12:00 | NUR ---
Patient received to room 116-2 patient awake and alert oriented x1 telemetry placed with sinus bradycardia of 40 no signs of symtom noted some skin laceration noted on left arm with elevated with pillows matt catheter in place with draining well to gravity patient had a normal BM cleaned up and dry made patient comfortable
[2021-04-20] MEDS: PROSOURCE / PROSTAT (PYXIS) 30 ML UDC GT SCH ×2 (14:57→18:54)
[2021-04-20] MEDS ORDERED: GLUCERNA 1.2 1,000 ML BOTTLE GT PRN (15:00)
[2021-04-20] MEDS: CEFTRIAXONE 1 G in IV D5W 50 ML IV SCH (15:01)
[2021-04-20] MEDS: IV NS 0.9% 1,000 ML IV PRN (15:02)
[2021-04-20 16:00] VITALS: BP 130/53
--- NOTE | 2021-04-20 16:00 | NUR ---
vitals taken and recorded
--- NOTE | 2021-04-20 18:00 | NUR ---
accucheck with 196 coverage given with 3 units no signs of distress noted will continue to assess and evaluate condition unchanged from previous assessment
[2021-04-20] MEDS: BLOOD SUGAR DIAGNOSTIC 1 EACH STRIP IN SCH (18:54)
[2021-04-20] MEDS: INSULIN REGULAR, HUMAN 100 UNIT/ML 3 ML VIAL SQ PRN (18:57)
[2021-04-20] MEDS: GLYCOPYRROLATE 1 MG TABLET GT SCH (18:58)
[2021-04-20] MEDS ORDERED: INSULIN REGULAR, HUMAN 100 UNIT/ML 3 ML VIAL SQ PRN (19:00)
[2021-04-20] MEDS ORDERED: DEXTROSE 50%-WATER 50 ML DISP.SYRIN IV PRN (19:00)
--- NOTE | 2021-04-20 19:00 | NUR ---
GT feeding started with glucerna at 50ml /hr with tolerated well no distress noted patient turned to side made patient comfortable
--- NOTE | 2021-04-20 19:20 | NUR ---
RN NOTE RECEIVED PATIENT IN BED RESTING ALERT ORIENTED X2 ON ROOM AIR O2:100% IV SITE IS ON LEFT HAND AND RIGHT WRIST INTACT PATENT IV HYDRATION NS 0.9% RUNNING 100CC/HR,ON G-TUBE FEEDING GLUCERNA 1.2 50CC/HR CHECKED PLACEMENT IN PLACE NO RESIDUAL NOTED,ORTEGA CATHETER IN PLACE URINE DRAINING YELLOW AND CLEAR BY GRAVITY,HEAD OF THE BED ELEVATED,BED IN LOW POSITION AND LOCKED CONTINUE TO MONITOR.
[2021-04-20 19:22] LABS: THYROID STIMULATING HORMONE 7.065 uIU/mL (0.358-3.74)
[2021-04-20 20:00] VITALS: BP 120/83
[2021-04-20] MEDS ORDERED: INSULIN GLARGINE, 100 UNIT/ML CARTRIDGE SQ SCH (22:00)
[2021-04-21] VITALS: BP 94/61
[2021-04-21] MEDS: IV NS 0.9% 1,000 ML IV PRN (02:13)
[2021-04-21 04:00] VITALS: BP 105/50
[2021-04-21] MEDS: BLOOD SUGAR DIAGNOSTIC 1 EACH STRIP IN SCH ×2 (05:35→12:38)
[2021-04-21] MEDS: INSULIN REGULAR, HUMAN 100 UNIT/ML 3 ML VIAL SQ PRN ×2 (05:35→12:40)
[2021-04-21 06:54] LABS: BASOPHILS % (AUTO) 0.3 % (0.0-2.0); EOSINOPHILS % (AUTO) 4.6 % (0.0-6.0); HEMATOCRIT 35 % (33-45); HEMOGLOBIN 11.4 g/dL (11.5-14.8); LYMPHOCYTES # (AUTO) 1.7 K/uL (0.8-4.8); LYMPHOCYTES % (AUTO) 11.1 % (20.0-44.0); MEAN CORPUSCULAR HGB CONC 33 g/dl (31.0-36.0); MEAN CORPUSCULAR VOLUME 82 fL (82-100); MONOCYTES # (AUTO) 1.3 K/uL (0.1-1.30); MONOCYTES % (AUTO) 8.5 % (2.0-12.0); NEUTROPHILS # (AUTO) 11.5 K/uL (1.8-8.9); NEUTROPHILS % (AUTO) 75.5 % (43.0-81.0); RED BLOOD CELL COUNT(AUTO) 4.26 MIL/uL (4.0-5.2); WHITE BLOOD COUNT (AUTO) 15.2 K/uL (4.3-11.0)
--- NOTE | 2021-04-21 07:14 | NUR ---
RN NOTE PATIENT REMAINS ON ALERT ORIENTEDX1 VERBALLY RESPONSIVE ON ROOM AIR NO SOB NOT ACUTE DISTRESS NOTED,ALL DUE MEDS GIVEN MD ORDERED KEPT CLEAN AND DRY ALL THE TIME,KEPT COMFORTABLE ALL NEEDS MET ENDORSE NEXT COMING SHIFT FOR CONTINUATION OF CARE.
[2021-04-21 07:30] LABS: ALANINE AMINOTRANSFERASE 18 U/L (12-78); ALBUMIN 1.9 g/dL (3.4-5.0); ALKALINE PHOSPHATASE 98 U/L (46-116); ASPARTATE AMINOTRANSFERASE 27 U/L (15-37); BILIRUBIN,TOTAL 0.2 mg/dL (0.2-1.0); CALCIUM, SERUM 8.8 mg/dL (8.5-10.1); CARBON DIOXIDE 31 mmol/L (21-32); CHLORIDE 105 mmol/L (98-107); CREATININE 1.5 mg/dL (0.6-1.3); GLUCOSE 144 mg/dL (74-106); MAGNESIUM 2.4 mg/dL (1.8-2.4); PHOSPHORUS 3.4 mg/dL (2.5-4.9); POTASSIUM 3.6 mmol/L (3.5-5.1); SODIUM SERUM 141 mmol/L (136-145); TOTAL PROTEIN, SERUM 6.3 g/dL (6.4-8.2); UREA NITROGEN, BLOOD 62 mg/dL (7-18)
[2021-04-21 08:00] VITALS: BP 105/50
[2021-04-21] MEDS ORDERED: DOCUSATE SODIUM LIQ 100 MG/10 ML UDC GT SCH (09:00)
[2021-04-21] MEDS ORDERED: MULTIVIT W/MINERALS 1 TAB TABLET GT SCH (09:00)
[2021-04-21] MEDS ORDERED: ASCORBIC ACID 500 MG TABLET GT SCH (09:00)
[2021-04-21] MEDS ORDERED: HYDROCHLOROTHIAZIDE 25 MG TABLET GT SCH (09:00)
[2021-04-21] MEDS ORDERED: CEFTRIAXONE 1GM BAG (ER ONLY) 1 GM/50 ML PIGGYBACK IV SCH (09:00)
[2021-04-21] MEDS ORDERED: AMLODIPINE BESYLATE 5 MG TABLET GT SCH (09:00)
[2021-04-21] MEDS: GLYCOPYRROLATE 1 MG TABLET GT SCH (09:06)
[2021-04-21] MEDS: ENOXAPARIN SODIUM 30 MG/0.3 ML DISP.SYRIN SQ SCH (09:09)
[2021-04-21] MEDS: PROSOURCE / PROSTAT (PYXIS) 30 ML UDC GT SCH ×2 (09:13→12:41)
--- NOTE | 2021-04-21 09:21 | NUR ---
WOUND CARE CONSULT: PT PRESENTS WITH LARGE SACRAL SCAR WHICH EXTENDS TO BUTTOCKS WELL SCRATCH MANDEL ON RT ARM AND REDNESS WITH SKIN LESIONS TO LEFT ARM, PRESENT ON ADMISSION. PT NOTED TO BE SCRATCHING HER RT ARM. RN TO NOTIFY . DR DE ANDA CALLED FOR SURGICAL CONSULT. RECOMMENDATIONS MADE FOR SKIN PROTECTION. DISCUSSED WITH NURSING STAFF. MD IN AGREEMENT WITH PLAN OF CARE.
[2021-04-21] MEDS ORDERED: PERMETHRIN 5% CRM 60 GM TUBE TP ONE (10:30)
[2021-04-21] MEDS ORDERED: IV LR 1000 ML 1,000 ML IV PRN (10:30)
[2021-04-21] MEDS ORDERED: DOXY-326 PO (11:39)
[2021-04-21 12:00] VITALS: BP 111/67
[2021-04-21] MEDS ORDERED: diphenhydrAMINE HCL 50 MG/ML VIAL IV PRN (12:00)
[2021-04-21] MEDS: CEFTRIAXONE 1 G in IV D5W 50 ML IV SCH (12:38)
[2021-04-21 13:26] LABS: PLATELET COUNT (AUTO) 314 K/uL (150-450)
--- NOTE | 2021-04-21 14:30 | NUR ---
RN NOTE PT REPORT GIVEN TO CELINE ONTIVEROS AT [facility] FOR ELLYN
--- NOTE | 2021-04-21 15:37 | NUR ---
RN NOTE PT DISCHARGED IN STABLE CONDITION BREATHING RA, SPO2 98%M NO S/S OF RESP DISTRESS OR SOB, REPORT GIVEN TO EMT.
== END 2021-04-21 15:54 | DRG 280 ==
LOC: ER 06:12 → TELE1 10:15 → TELE-TD 12:02
PROVIDERS: ADMIT Internal Medicine; ATTEND Internal Medicine
DX: I44.2 Atrioventricular block, complete (principal); I21.A1 Myocardial infarction type 2; N17.0 Acute kidney failure with tubular necrosis; I69.351 Hemiplegia and hemiparesis following cerebral infarction affecting right dominant side; N39.0 Urinary tract infection, site not specified; E87.1 Hypo-osmolality and hyponatremia; I12.9 Hypertensive chronic kidney disease with stage 1 through stage 4 chronic kidney disease, or unspecified chronic kidney disease; N18.9 Chronic kidney disease, unspecified; E03.9 Hypothyroidism, unspecified; E78.5 Hyperlipidemia, unspecified; E86.1 Hypovolemia; Z66 Do not resuscitate; R13.10 Dysphagia, unspecified; I25.10 Atherosclerotic heart disease of native coronary artery without angina pectoris; Z79.4 Long term (current) use of insulin; Z79.02 Long term (current) use of antithrombotics/antiplatelets; Z93.1 Gastrostomy status; E11.22 Type 2 diabetes mellitus with diabetic chronic kidney disease; E11.65 Type 2 diabetes mellitus with hyperglycemia; E87.8 Other disorders of electrolyte and fluid balance, not elsewhere classified; E88.09 Other disorders of plasma-protein metabolism, not elsewhere classified; F02.80 Dementia in other diseases classified elsewhere, unspecified severity, without behavioral disturbance, psychotic disturbance, mood disturbance, and anxiety; G40.909 Epilepsy, unspecified, not intractable, without status epilepticus; Z20.822 Contact with and (suspected) exposure to COVID-19; B96.4 Proteus (mirabilis) (morganii) as the cause of diseases classified elsewhere; S40.022A Contusion of left upper arm, initial encounter; S40.021A Contusion of right upper arm, initial encounter; X58.XXXA Exposure to other specified factors, initial encounter; Y93.9 Activity, unspecified; Y92.129 Unspecified place in nursing home as the place of occurrence of the external cause; B86 Scabies
CPT/HCPCS: 36415; 71045-TC; 80048-TC; 80053-TC; 80076-TC; 81001; 82962-TC; 83605-TC; 83735-TC; 84100-TC; 84439-TC; 84443-TC; 84481; 84484-TC; 85025-TC; 85730-TC; 87040-TC; 87081-TC; 87086-TC; 87186-TC; 93307-TC; C9803; G0378; J0696; J1650; J1815; J2543; J3490; J7030; J7050; J7060; U0003

== ENCOUNTER 2021-04-27 07:06 | Inpatient (IN) | payer MEDICARE, OTHER ==
[~2021-04-27] VITALS: Ht 167.6 cm; Wt 85.3 kg
[~2021-04-27 07:06] MED LIST changes: +ACET650S11 RC; +ACET650S26 GT; +AMIN30LI27 GT; +AMLO-212 GT; +ASCO-352 GT; -ATOR10TA PO; -CARB1TAB24 PO; -CLOP75TA15 PO; -DIVA500T2 PO; +DOXY-326 PO; -FERR325T23 PO; -GABA-532 PO; -GABA-534 PO; -GEMF600T PO; +GLYC2TAB21 GT; -HEPA500014 SQ; +HYDR12.55 GT; +LEVO100T9 GT; -LEVO100T9 PO; -LISI20TA30 PO; +MAGN400O6 GT; -MAGN400O6 PO; +MULT-447 GT; +NUT.237L31 GT
--- NOTE | 2021-04-27 07:15 | NUR ---
PT [id number], FROM [facility], C/O DESAT 80% AND JUAN DANIEL@40. PLACED ON BOOSTER PLANT OPERATOR AND PULSE OX. ER MD AT BEDSIDE FOR EVAL. AWAITING ORDERS.
--- NOTE | 2021-04-27 07:35 | NUR ---
covid swab collected and sent to lab.
[2021-04-27 07:37] LABS: BASOPHILS # (AUTO) 0.1 K/uL (0.0-0.2); HEMOGLOBIN 10.4 g/dL (11.5-14.8); MEAN CORPUSCULAR HGB CONC 30 g/dl (31.0-36.0); NEUTROPHILS # (AUTO) 16.6 K/uL (1.8-8.9); PLATELET COUNT (AUTO) 430 K/uL (150-450)
[2021-04-27 07:43] LABS: BASOPHILS % (AUTO) 0.5 % (0.0-2.0); EOSINOPHILS % (AUTO) 0.2 % (0.0-6.0); HEMATOCRIT 35 % (33-45); LYMPHOCYTES # (AUTO) 1.3 K/uL (0.8-4.8); LYMPHOCYTES % (AUTO) 6.9 % (20.0-44.0); MEAN CORPUSCULAR VOLUME 86 fL (82-100); MONOCYTES # (AUTO) 0.6 K/uL (0.1-1.30); MONOCYTES % (AUTO) 3.4 % (2.0-12.0); RED BLOOD CELL COUNT(AUTO) 4.02 MIL/uL (4.0-5.2); WHITE BLOOD COUNT (AUTO) 18.6 K/uL (4.3-11.0)
[2021-04-27 07:45] LABS: BILIRUBIN,URINE Negative (NEGATIVE); COLOR,URINE YELLOW (YELLOW); LEUKOCYTE ESTERASE ,URINE Negative (NEGATIVE); NITRITE, URINE Negative (NEGATIVE); PROTEIN,URINE >=300 mg/dl (NEGATIVE); UGLUCOSE 250 MG/DL mg/dL (NEGATIVE); UROBILINOGEN,URINE 0.2 EU/dL (0.2)
[2021-04-27 07:55] LABS: BACTERIA,URINE Rare /HPF (None Seen); RBC,URINE 0-2 /HPF (0-2); SQUAMOUS EPITHELIAL CELL,UR 0-2 /HPF (None Seen); WBC,URINE 0-2 /HPF (0-3)
[2021-04-27] MEDS ORDERED: VANCOMYCIN 1 GM in IV D5W 250 ML IV ONE (08:00)
[2021-04-27] MEDS ORDERED: PIPERACILLIN /TAZOBACTAM 3.375 G in IV D5W 50 ML IV ONE (08:00)
[2021-04-27 08:03] LABS: ALANINE AMINOTRANSFERASE 36 U/L (12-78); ALBUMIN 2.2 g/dL (3.4-5.0); ALKALINE PHOSPHATASE 119 U/L (46-116); ASPARTATE AMINOTRANSFERASE 74 U/L (15-37); BILIRUBIN,DIRECT 0.3 mg/dL (0.0-0.2); BILIRUBIN,TOTAL 0.5 mg/dL (0.2-1.0); CALCIUM, SERUM 8.6 mg/dL (8.5-10.1); CARBON DIOXIDE 15 mmol/L (21-32); CHLORIDE 93 mmol/L (98-107); CREATININE 2.6 mg/dL (0.6-1.3); SODIUM SERUM 131 mmol/L (136-145); TOTAL PROTEIN, SERUM 6.7 g/dL (6.4-8.2); UREA NITROGEN, BLOOD 78 mg/dL (7-18)
[2021-04-27] MEDS ORDERED: SULF1TAB48 GT (08:03)
[2021-04-27 08:07] LABS: GLUCOSE 393 mg/dL (74-106); POTASSIUM 7.4 mmol/L (3.5-5.1)
[2021-04-27] MEDS ORDERED: CALCIUM CHLORIDE 1,000 MG/10 ML DISP.SYRIN ONE (08:18)
[2021-04-27] MEDS ORDERED: SODIUM BICARBONATE SYR 50 MEQ/50 ML DISP.SYRIN ONE (08:18)
[2021-04-27] MEDS ORDERED: INSULIN REGULAR, HUMAN 100 UNIT/ML 10 ML VIAL ONE (08:18)
[2021-04-27] MEDS ORDERED: SODIUM BICARBONATE SYR 50 MEQ/50 ML DISP.SYRIN IV ONE (08:30)
[2021-04-27] MEDS ORDERED: CALCIUM CHLORIDE 1,000 MG/10 ML DISP.SYRIN IV ONE (08:30)
[2021-04-27] MEDS ORDERED: INSULIN REGULAR, HUMAN 100 UNIT/ML 10 ML VIAL IV ONE (08:30)
--- NOTE | 2021-04-27 08:58 | NUR ---
FRIENDS JUDITH [phone]
--- NOTE | 2021-04-27 09:02 | NUR ---
GOT BED 101
--- NOTE | 2021-04-27 09:06 | NUR ---
report given to debby gutierrez for dale.
--- NOTE | 2021-04-27 09:30 | NUR ---
wheeled patient via gurney accompanied by RN and emt in no distress. RN at bedside to assume care.
--- NOTE | 2021-04-27 09:35 | NUR ---
RN NOTE RECEIVED PATIENT FROM ER VIA RKRISHNA, NOTIFIED DR. MANN PATIENT CODE STATUS IS DNR/DNI.
[2021-04-27] MEDS: IV NS 0.9% 1,000 ML IV PRN (09:55)
[2021-04-27] MEDS ORDERED: DEXTROSE 50%-WATER 50 ML DISP.SYRIN IV PRN (10:00)
[2021-04-27] MEDS ORDERED: BISACODYL SUPP (10 MG) 10 MG/SUPP.RECT SUPP.RECT RC PRN (10:00)
[2021-04-27] MEDS ORDERED: ONDANSETRON HCL/PF 4 MG/2 ML VIAL IVP PRN (10:00)
[2021-04-27] MEDS ORDERED: MAGNESIUM HYDROXIDE 30 ML UDC PO PRN (10:00)
[2021-04-27] MEDS ORDERED: NA PHOS,M-B/NA PHOS,DI-BA 1 EA ENEMA RC PRN (10:00)
[2021-04-27] MEDS ORDERED: MAG HYDROX/AL HYDROX/SIMETH 30 ML UDC PO PRN (10:00)
[2021-04-27] MEDS ORDERED: ACETAMINOPHEN 650 MG/20.3 ML UDC GT PRN (10:00)
[2021-04-27] MEDS ORDERED: ACETAMINOPHEN 325 MG TABLET PO PRN (10:00)
[2021-04-27] MEDS ORDERED: MAGNESIUM HYDROXIDE 30 ML UDC GT PRN (10:00)
[2021-04-27] MEDS ORDERED: ACETAMINOPHEN 650 MG/SUPP.RECT RC PRN (10:00)
[2021-04-27] MEDS ORDERED: Z GUARD REMEDY 2 OZ OINT TP PRN (10:00)
[2021-04-27 10:58] LABS: ABG BASE EXCESS -8.6 mmol/L; ABG OXYGEN SATURATION 93.5 % (92.0-98.5); ABG PCO2 31.7 mmHg (35.0-45.0); ABG PH 7.329 (7.350-7.450); ABG PO2 76.7 mmHg (75.0-100.0); AaDO2 114.4 mmHg; COHb 0.2 % (0.5-1.5); MetHb 0.3 % (0.0-1.5); SITE, ABG Left Radial; VENT MODE, BG Nasal Cannula
--- NOTE | 2021-04-27 11:20 | NUR ---
RN NOTE NOTIFIED DR. MANN REGARDING PATIENT ABG RESULT BICARB OF 0.075, NO NEW ORDERS AT THIS TIME, WILL CONTINUE TO MONITOR.
[2021-04-27] MEDS: HEPARIN SODIUM, PORCINE 5000 UNITS/1 ML VIAL SQ SCH ×2 (12:54→20:44)
[2021-04-27] MEDS: BLOOD SUGAR DIAGNOSTIC 1 EACH STRIP VI SCH ×3 (12:55→21:28)
[2021-04-27 13:01] LABS: T4 (THYROXINE) 6.4 ug/dL (4.7-13.3); THYROID STIMULATING HORMONE 17.471 uIU/mL (0.358-3.74)
[2021-04-27] MEDS: INSULIN REGULAR, HUMAN 100 UNIT/ML 3 ML VIAL SQ PRN ×2 (13:02→16:38)
[2021-04-27] MEDS: GLUCERNA 1.5 1,000 ML BOTTLE GT PRN (13:24)
--- NOTE | 2021-04-27 14:14 | NUR ---
RN NOTE PATIENT FOR COMFORT MEASURES, DNR/DNI, PATIENT MADE COMFORTABLE, NO SIGNS OF PAIN OBSERVED, WILL CONTINUE TO MONITOR PATIENT.
[2021-04-27 15:14] LABS: CALCIUM, SERUM 9.4 mg/dL (8.5-10.1); CARBON DIOXIDE 27 mmol/L (21-32); CHLORIDE 94 mmol/L (98-107); CREATININE 2.5 mg/dL (0.6-1.3); GLUCOSE 265 mg/dL (74-106); POTASSIUM 5.5 mmol/L (3.5-5.1); SODIUM SERUM 130 mmol/L (136-145)
[2021-04-27 15:25] LABS: UREA NITROGEN, BLOOD 87 mg/dL (7-18)
--- NOTE | 2021-04-27 15:33 | NUR ---
RN NOTE DR. MANN NOTIFIED PATIENT LABORATORY RESULT, BUN OF 87, POTASSIUM OF 5.5, CREATININE OF 2.5 Addendum: 04/27/21 at 1534 by MAL MURILLO RN RN NOTE DR. MANN NOTIFIED PATIENT LABORATORY RESULT, BUN OF 87, POTASSIUM OF 5.5, CREATININE OF 2.5 NO NEW ORDER AT THIS TIME WILL FOLLOW UP WITH
[2021-04-27 16:00] VITALS: BP 132/34
[2021-04-27] MEDS ORDERED: SODIUM POLYSTYRENE SULFONATE 15 G/60 ML BOTTLE GT ONE (16:00)
--- NOTE | 2021-04-27 19:06 | NUR ---
RN NOTE PATIENT OBTUNDED, BREATHING EVEN AND UNLABORED, O2 VIA NC AT 3LPM O2 SAT OF 98%, FOR COMFORT MEASURES, PATIENT NOT IN DISTRESS, NO PAIN OBSERVED, ON GT FEEDING GLUCERNA 1.2 AT 60CC/HR PATENT TOLERATING WELL O RESIDUAL NOTED, KAYEXALATE GIVEN ORDERED,IV NS HYDRATION PATENT INFUSING WELLON ORTEGA CATHETER DRAINING WELL WITH NO HEMATURIA NOTED, WILL CONTINUE TO MONITOR, BED WHEELS LOCK, CALL LIGHT WITHIN REACH, WILL ENDORSE TO NOC SHIFT.
[2021-04-27 20:00] VITALS: BP 159/44
--- NOTE | 2021-04-27 21:00 | NUR ---
RN NOTES, BLOOD SUGAR NOTED 68MG/DL AT THIS TIME, WILL GIVE JUICE VIA GT AND RECHECK.
[2021-04-27] MEDS: *INSULIN REGULAR(HUMULIN R)HUM 100 UNIT/ML VIAL SQ PRN (21:28)
--- NOTE | 2021-04-27 21:55 | NUR ---
RN NOTES, RECHECK BLOOD SUGAR AT THIS TIME AND BLOOD SUGAR 73MG/DL, PATIENT IN GT FEEDING, WILL CONTINUE TO MONITOR CLOSELY.
[2021-04-28] MEDS: IV NS 0.9% 1,000 ML IV PRN ×2 (00:27→11:41)
[2021-04-28 04:00] VITALS: BP 128/49
[2021-04-28 06:07] LABS: BASOPHILS # (AUTO) 0.1 K/uL (0.0-0.2); BASOPHILS % (AUTO) 0.3 % (0.0-2.0); EOSINOPHILS % (AUTO) 1.5 % (0.0-6.0); HEMATOCRIT 31 % (33-45); LYMPHOCYTES # (AUTO) 0.9 K/uL (0.8-4.8); LYMPHOCYTES % (AUTO) 4.5 % (20.0-44.0); MEAN CORPUSCULAR HGB CONC 33 g/dl (31.0-36.0); MEAN CORPUSCULAR VOLUME 81 fL (82-100); MONOCYTES % (AUTO) 4.8 % (2.0-12.0); NEUTROPHILS # (AUTO) 17.8 K/uL (1.8-8.9); NEUTROPHILS % (AUTO) 88.9 % (43.0-81.0); PLATELET COUNT (AUTO) 333 K/uL (150-450); RED BLOOD CELL COUNT(AUTO) 3.76 MIL/uL (4.0-5.2)
[2021-04-28 06:52] LABS: CALCIUM, SERUM 8.2 mg/dL (8.5-10.1); CARBON DIOXIDE 31 mmol/L (21-32); CHLORIDE 98 mmol/L (98-107); CREATININE 2.2 mg/dL (0.6-1.3); GLUCOSE 155 mg/dL (74-106); MAGNESIUM 3.2 mg/dL (1.8-2.4); PHOSPHORUS 5.7 mg/dL (2.5-4.9); POTASSIUM 4.6 mmol/L (3.5-5.1); SODIUM SERUM 135 mmol/L (136-145)
[2021-04-28 06:57] LABS: UREA NITROGEN, BLOOD 88 mg/dL (7-18)
--- NOTE | 2021-04-28 07:38 | NUR ---
WOUND CARE CONSULT: REVIEWED CHART, NURSING DOCUMENTATION AND PHOTO WHICH INDICATES SACRAL SCARRING WITH OPEN AREA, PRESENT ON ADMISSION. PT FOLLOWED BY SURGICAL TEAM OF DR DE ANDA FOR WOUND CARE. DEFER TO SURGICAL TEAM FOR WOUND TREATMENT PLAN. RECOMMENDATIONS MADE FOR SKIN PROTECTION AND DISCUSSED WITH NURSING STAFF. MD IN AGREEMENT WITH PLAN OF CARE.
[2021-04-28] MEDS: BLOOD SUGAR DIAGNOSTIC 1 EACH STRIP VI SCH ×4 (07:46→21:09)
[2021-04-28] MEDS: LEVOTHYROXINE SODIUM 175 MCG TABLET GT SCH (07:46)
[2021-04-28] MEDS: INSULIN REGULAR, HUMAN 100 UNIT/ML 3 ML VIAL SQ PRN ×4 (07:51→21:24)
--- NOTE | 2021-04-28 07:53 | NUR ---
RN NOTE PATIENT OBTUNDED, BREATHING EVEN AND UNLABORED, O2 VIA NC AT 3LPM O2 SAT OF 98%, FOR COMFORT MEASURES, HR OF 39 BPM PATIENT NOT IN DISTRESS, NO PAIN OBSERVED, ON GT FEEDING GLUCERNA 1.2 AT 60CC/HR PATENT TOLERATING WELL O RESIDUAL NOTED, IV NS HYDRATION PATENT INFUSING WELL,ON ORTEGA CATHETER DRAINING WELL WITH NO HEMATURIA NOTED, WILL CONTINUE TO MONITOR, BED WHEELS LOCK, CALL LIGHT WITHIN REACH.
[2021-04-28 08:00] VITALS: BP 91/51
--- NOTE | 2021-04-28 08:35 | NUR ---
WOUND CARE: DISCUSSED SKIN PROTECTION AND WOUND CARE WITH INGRID CASTRO CURRENTLY ON CASE.
[2021-04-28] MEDS ORDERED: DOCUSATE SODIUM 100 MG CAPSULE PO SCH (09:00)
[2021-04-28] MEDS: DOCUSATE SODIUM LIQ 100 MG/10 ML UDC GT SCH (09:07)
[2021-04-28] MEDS: HEPARIN SODIUM, PORCINE 5000 UNITS/1 ML VIAL SQ SCH ×2 (09:07→21:10)
--- NOTE | 2021-04-28 11:02 | NUR ---
RN NOTE PATIENT SEEN BY DR. MANN, READ BACK LAB RESULT TO MD, NO NEW ORDERED, WILL CONTINUE TO MONITOR.
[2021-04-28] MEDS: GLUCERNA 1.5 1,000 ML BOTTLE GT PRN (11:40)
[2021-04-28 16:00] VITALS: BP 100/52
[2021-04-28] MEDS ORDERED: GLUCERNA 1.2 1,000 ML BOTTLE NG PRN (18:30)
--- NOTE | 2021-04-28 18:32 | NUR ---
RN NOTE PATIENT AWAKE ON BED, ALERT AND ORIENTED X2, ABLE TO VERBALIZE NAME AND LOCATION, BREATHING EVEN AND UNLABORED, O2 VIA NC AT 3LPM O2 SAT OF 98%, FOR COMFORT MEASURES, HR OF 51 BPM PATIENT NOT IN DISTRESS, NO PAIN OBSERVED, ON GT FEEDING GLUCERNA 1.2 AT 60CC/HR PATENT TOLERATING WELL O RESIDUAL NOTED, IV FLUSHING PATENT INFUSING WELL,ON ORTEGA CATHETER DRAINING WELL WITH NO HEMATURIA NOTED, WILL CONTINUE TO MONITOR, BED WHEELS LOCK, CALL LIGHT WITHIN REACH. WILL ENDORSE TO NOC SHIFT
[2021-04-28] MEDS ORDERED: FUROSEMIDE 20 MG/2 ML VIAL IV ONE (19:00)
--- NOTE | 2021-04-28 19:48 | NUR ---
RN OPENING NOTE RECEIVED PATIENT IN BED A/0 X1 NAME ONLY, BREATHING EVEN AND UNLABORED ON O2 VIA NC AT 3LPM O2 SAT OF >96%, NO SOB OR RESP. DISTRESS NOTED. DENIES ANY PAIN, ON GT FEEDING GLUCERNA 1.2 AT 60CC/HR X20 HRS OFF AT 0500. G TUBE FLUSHED AND AUSCULTATED FOR POSITIVE PLACEMENT, NO RESIDUAL NOTED. IV (R) HAND INFILTRATED AND REMOVED, ICE PACK PLACED AND ELEVATION IMPLEMENTED. ORTEGA CATHETER DRAINING SHARRI URINE. SAFETY MEASURES IMPLEMENTED: BED LOCKED IN LOWEST POSITION,M CALL LIGHT WITHIN REACH, SIDE RAILS UP X3, HOB ELEVATED. NO ACUTE DISTRESS NOTED AT THIS TIME.
[2021-04-29] VITALS: BP 126/46
[2021-04-29 06:41] LABS: BASOPHILS # (AUTO) 0.1 K/uL (0.0-0.2); BASOPHILS % (AUTO) 0.6 % (0.0-2.0); EOSINOPHILS % (AUTO) 2.2 % (0.0-6.0); HEMATOCRIT 28 % (33-45); HEMOGLOBIN 9.1 g/dL (11.5-14.8); LYMPHOCYTES # (AUTO) 0.9 K/uL (0.8-4.8); LYMPHOCYTES % (AUTO) 7.2 % (20.0-44.0); MEAN CORPUSCULAR HGB CONC 33 g/dl (31.0-36.0); MEAN CORPUSCULAR VOLUME 83 fL (82-100); MONOCYTES # (AUTO) 0.7 K/uL (0.1-1.30); MONOCYTES % (AUTO) 5.7 % (2.0-12.0); NEUTROPHILS # (AUTO) 10.9 K/uL (1.8-8.9); NEUTROPHILS % (AUTO) 84.3 % (43.0-81.0); PLATELET COUNT (AUTO) 287 K/uL (150-450); RED BLOOD CELL COUNT(AUTO) 3.37 MIL/uL (4.0-5.2)
--- NOTE | 2021-04-29 06:42 | NUR ---
RN CLOSING NOTE PATIENT IN BED A/0 X1 NAME ONLY, BREATHING EVEN AND UNLABORED ON O2 VIA NC AT 3LPM O2 SAT OF >96%, NO SOB OR RESP. DISTRESS NOTED. DENIES ANY PAIN OR DISCOMFORT, ON GT FEEDING GLUCERNA 1.2 AT 60CC/HR X20 HRS OFF AT 0500 AND TO RE-STARTED AT 0900. G TUBE FLUSHED AND FEEDS TOLERATED WELL. ORTEGA CATHETER DRAINING SHARRI URINE. PT. PLACED ON ISOFLEX BED. AM LABS COMPLETED. WOUND CARE COMPLETED ORDERED. BED BATH GIVEN WITH HELP OF TIRE LAYER. PT. KEPT CLEAN ND DRY. SAFETY MEASURES IMPLEMENTED: BED LOCKED IN LOWEST POSITION, CALL LIGHT WITHIN REACH, SIDE RAILS UP X3, HOB ELEVATED. NO ACUTE DISTRESS NOTED AT THIS TIME. WILL ENDORSE CONTINUITY OF CARE TO MORNING SHIFT RN
--- NOTE | 2021-04-29 07:30 | NUR ---
RN NOTE: RECEIVED PT LYING IN BED SLEEPING INTERMITTENTLY. PATIENT IN BED A/0 X1 NAME ONLY, BREATHING EVEN AND UNLABORED WITH EQUAL RISE AND FALL OF CHEST ON INSPIRATION AND EXPIRATION. ON O2 VIA NC AT 3L O2 SAT OF 97 % NO SOB OR RESP. DISTRESS NOTED. DENIES ANY PAIN OR DISCOMFORT, ON GT FEEDING GLUCERNA 1.2 AT 60CC/HR X20 HRS OFF G TUBE FLUSHED AND FEEDS TOLERATED WELL. ORTEGA CATHETER DRAINING SHARRI URINE. PT. PLACED ON ISOFLEX BED. WOUND CARE COMPLETED ORDERED. PT. KEPT CLEAN ND DRY. SAFETY MEASURES IMPLEMENTED: BED LOCKED IN LOWEST POSITION, CALL LIGHT WITHIN REACH. WILL CONT TO MONITOR
[2021-04-29 07:49] LABS: CALCIUM, SERUM 7.9 mg/dL (8.5-10.1); CARBON DIOXIDE 27 mmol/L (21-32); CHLORIDE 101 mmol/L (98-107); CREATININE 2.2 mg/dL (0.6-1.3); GLUCOSE 270 mg/dL (74-106); POTASSIUM 3.8 mmol/L (3.5-5.1); SODIUM SERUM 139 mmol/L (136-145)
[2021-04-29] MEDS: BLOOD SUGAR DIAGNOSTIC 1 EACH STRIP VI SCH ×4 (08:04→21:27)
[2021-04-29] MEDS: INSULIN REGULAR, HUMAN 100 UNIT/ML 3 ML VIAL SQ PRN ×3 (08:09→17:43)
[2021-04-29 08:15] LABS: UREA NITROGEN, BLOOD 88 mg/dL (7-18)
[2021-04-29 08:20] VITALS: BP 190/37
[2021-04-29] MEDS: LEVOTHYROXINE SODIUM 175 MCG TABLET GT SCH (08:25)
[2021-04-29] MEDS: DOCUSATE SODIUM LIQ 100 MG/10 ML UDC GT SCH (09:05)
[2021-04-29] MEDS: HEPARIN SODIUM, PORCINE 5000 UNITS/1 ML VIAL SQ SCH ×2 (09:06→21:14)
[2021-04-29] MEDS: FUROSEMIDE 20 MG/2 ML VIAL IV SCH (09:07)
[2021-04-29 17:50] VITALS: BP 175/50
--- NOTE | 2021-04-29 19:52 | NUR ---
RN NOTE PATIENT IN BED RESTING, ALERT AND ORIENTED X1. ON O2 3L VIA NASAL CANNULA, NO SIGNS OF RESPIRATORY DISTRESS. DENIES ANY PAIN AT THIS TIME. WITH ORTEGA CATH PATENT AND INTACT, DRAINING YELLOW URINE TO GRAVITY. WITH G-TUBE GLUCERNA @ 60ML/HR, NO RESIDUAL NOTED. IV ACCESS ON LEFT HAND # 18, NO SIGNS OF INFILTRATION. SAFETY MEASURES MAINTAINED. BED LOCKED AND IN LOWEST POSITION. CALL LIGHT WITHIN REACH.
[2021-04-29 20:00] VITALS: BP 139/52
[2021-04-29] MEDS: *INSULIN REGULAR(HUMULIN R)HUM 100 UNIT/ML VIAL SQ PRN (21:27)
[2021-04-30] VITALS: BP 100/49
[2021-04-30 04:00] VITALS: BP 124/53
--- NOTE | 2021-04-30 06:47 | NUR ---
RN NOTE PATIENT ALERT AND ORIENTED X1. ON O2 3L VIA NASAL CANNULA O2 SAT 99%. WITH ORTEGA CATH PATENT AND INTACT, DRAINING YELLOW URINE TO GRAVITY OUTPUT 500CC. WITH G-TUBE GLUCERNA @ 60ML/HR, OFF AT THIS TIME AND ON AT 0900. NO RESIDUAL NOTED. IV ACCESS ON LEFT HAND # 18 INTACT AND PATENT. KEPT CLEAN AND DRY. SAFETY MEASURES MAINTAINED. BED LOCKED AND IN LOWEST POSITION. CALL LIGHT WITHIN REACH. WILL ENDORSE TO AM SHIFT.
[2021-04-30 06:49] LABS: BASOPHILS # (AUTO) 0.1 K/uL (0.0-0.2); BASOPHILS % (AUTO) 0.7 % (0.0-2.0); EOSINOPHILS % (AUTO) 4.5 % (0.0-6.0); HEMATOCRIT 31 % (33-45); HEMOGLOBIN 9.9 g/dL (11.5-14.8); LYMPHOCYTES # (AUTO) 1.2 K/uL (0.8-4.8); LYMPHOCYTES % (AUTO) 11.5 % (20.0-44.0); MEAN CORPUSCULAR HGB CONC 33 g/dl (31.0-36.0); MEAN CORPUSCULAR VOLUME 84 fL (82-100); MONOCYTES # (AUTO) 0.7 K/uL (0.1-1.30); MONOCYTES % (AUTO) 6.6 % (2.0-12.0); NEUTROPHILS # (AUTO) 7.8 K/uL (1.8-8.9); NEUTROPHILS % (AUTO) 76.7 % (43.0-81.0); PLATELET COUNT (AUTO) 288 K/uL (150-450); RED BLOOD CELL COUNT(AUTO) 3.65 MIL/uL (4.0-5.2); WHITE BLOOD COUNT (AUTO) 10.2 K/uL (4.3-11.0)
[2021-04-30 07:12] LABS: ALANINE AMINOTRANSFERASE 114 U/L (12-78); ALBUMIN 2.1 g/dL (3.4-5.0); ALKALINE PHOSPHATASE 88 U/L (46-116); ASPARTATE AMINOTRANSFERASE 46 U/L (15-37); BILIRUBIN,TOTAL 0.3 mg/dL (0.2-1.0); CALCIUM, SERUM 8.1 mg/dL (8.5-10.1); CARBON DIOXIDE 29 mmol/L (21-32); CHLORIDE 106 mmol/L (98-107); CREATININE 2.2 mg/dL (0.6-1.3); GLUCOSE 255 mg/dL (74-106); MAGNESIUM 2.7 mg/dL (1.8-2.4); POTASSIUM 3.5 mmol/L (3.5-5.1); SODIUM SERUM 144 mmol/L (136-145); UREA NITROGEN, BLOOD 78 mg/dL (7-18)
[2021-04-30] MEDS: BLOOD SUGAR DIAGNOSTIC 1 EACH STRIP VI SCH ×4 (07:30→21:30)
--- NOTE | 2021-04-30 07:45 | NUR ---
WRAPPER STEMMER HAND OPENING NOTES RECEIVED PATIENT IN BED, AWAKE, A/O X1. PATIENT ON OXYGEN THERAPY AT 3 LPM VIA NASAL CANNULA, BREATHING EVEN AND UNLABORED; NO SOB PRESENT AT THIS TIME. NO S/S OF PAIN SUCH FACIAL GRIMACING, MOANING OR GUARDING. G-TUBE IN PLACE RUNNING GLUCERNA @ 60 MLS/HR. IV ACCESS ON L HAND G #18; SL. SAFETY PRECAUTIONS IN PLACE; BED IN LOW POSITION AND LOCKED, RAILS UP X2, CALL LIGHT WITHIN REACH. WILL CONTINUE TO MONITOR PATIENT.
[2021-04-30 08:00] VITALS: BP 135/75
[2021-04-30] MEDS: DOCUSATE SODIUM LIQ 100 MG/10 ML UDC GT SCH (08:30)
[2021-04-30] MEDS: LEVOTHYROXINE SODIUM 175 MCG TABLET GT SCH (08:30)
[2021-04-30] MEDS: HEPARIN SODIUM, PORCINE 5000 UNITS/1 ML VIAL SQ SCH ×2 (08:31→21:14)
[2021-04-30] MEDS: FUROSEMIDE 20 MG/2 ML VIAL IV SCH (08:40)
[2021-04-30 13:50] VITALS: BP 140/50
--- NOTE | 2021-04-30 15:20 | NUR ---
MS RN NOTES PATIENT COMPLAINING OF R ARM PAIN. PRN TYLENOL ADMINISTERED.
[2021-04-30] MEDS: ACETAMINOPHEN 650 MG/20.3 ML UDC GT PRN (15:26)
--- NOTE | 2021-04-30 16:15 | NUR ---
MS RN NOTES PATIENT COMPLAINING OF PAIN IN HER R ARM. ARM HOT TO TOUCH AND EDEMATOUS. MD NOTIFIED. ORDERED DUPLEX VENOUS UPPER EXTREMITY.
[2021-04-30 16:25] VITALS: BP 140/50
[2021-04-30] MEDS: INSULIN REGULAR, HUMAN 100 UNIT/ML 3 ML VIAL SQ PRN ×2 (17:05→21:36)
--- NOTE | 2021-04-30 18:55 | NUR ---
COKE DRAWER HAND CLOSING NOTES PATIENT IN BED, AWAKE, A/O X1. PATIENT ON OXYGEN THERAPY AT 3 LPM VIA NASAL CANNULA, BREATHING EVEN AND UNLABORED; NO SOB PRESENT DURING SHIFT. NO S/S OF PAIN SUCH FACIAL GRIMACING, MOANING OR GUARDING AT THIS TIME. G-TUBE IN PLACE RUNNING GLUCERNA @ 60 MLS/HR. IV ACCESS ON L HAND G #18; SL. ALL NEEDS ATTENDED DURING THE DAY. SAFETY PRECAUTIONS IN PLACE; BED IN LOW POSITION AND LOCKED, RAILS UP X2, CALL LIGHT WITHIN REACH. WILL ENDORSE TO SEWAGE SCREEN OPERATOR NURSE.
--- NOTE | 2021-04-30 19:35 | NUR ---
RN NOTE PT RECEIVED IN BED, A&OX1. PT CURRENTLY ON 3L OF O2 VIA NC SHOWING NO S/S OF RESPIRATORY DISTRESS. PT HAS GLUCERNA RUNNING AT 60 ML/HR FOR 20 HOURS. TOLERATING WELL. G-TUBE FLUSHED, NO RESIDUAL NOTED. IV LINE ON LEFT HAND, FLUSHED, PATENT, AND INTACT WITH NO SIGNS OF INFILTRATION. ALL SAFETY MEASURES IMPLEMENTED. BED LOCKED AND IN LOWEST POSITION. CALL LIGHT WITHIN REACH. BED ALARM ON. WILL CONTINUE TO MONITOR THROUGHOUT THE SHIFT.
[2021-04-30 20:00] VITALS: BP 189/73
--- NOTE | 2021-04-30 21:37 | NUR ---
RN NOTE PT BLOOD SUGAR WAS 188. 3 UNITS OF INSULIN ADMINISTERED PER SLIDING SCALE.
--- NOTE | 2021-04-30 21:37 | NUR ---
2136 MARINE EQUIPMENT TEST ENGINEER Todd made aware of pt's bp 187/79, rechecked 189/73 with order made. Order noted.
[2021-04-30] MEDS: hydrALAZINE HCL IV 20 MG VIAL IV PRN (22:03)
--- NOTE | 2021-04-30 22:03 | NUR ---
RN NOTE APRESOLINE 1MG ADMINISTERED PER DR. NORMA BUSTAMANTE. WILL RE-ASSESS PT IN 30 MINUTES.
[2021-04-30] MEDS: GLUCERNA 1.2 1,000 ML BOTTLE NG PRN (22:29)
--- NOTE | 2021-04-30 22:33 | NUR ---
RN NOTE PT BLOOD PRESSURE NOW 125/64 AFTER ADMINISTRATION OF APRESOLINE 1MG IVP. WILL CONTINUE TO MONITOR.
[2021-05-01 04:00] VITALS: BP 139/78
[2021-05-01 06:08] LABS: BASOPHILS # (AUTO) 0.1 K/uL (0.0-0.2); BASOPHILS % (AUTO) 0.5 % (0.0-2.0); EOSINOPHILS % (AUTO) 4.6 % (0.0-6.0); HEMATOCRIT 33 % (33-45); HEMOGLOBIN 10.5 g/dL (11.5-14.8); LYMPHOCYTES # (AUTO) 1.3 K/uL (0.8-4.8); LYMPHOCYTES % (AUTO) 11.3 % (20.0-44.0); MEAN CORPUSCULAR HGB CONC 32 g/dl (31.0-36.0); MEAN CORPUSCULAR VOLUME 84 fL (82-100); MONOCYTES # (AUTO) 0.9 K/uL (0.1-1.30); MONOCYTES % (AUTO) 7.5 % (2.0-12.0); NEUTROPHILS # (AUTO) 8.8 K/uL (1.8-8.9); NEUTROPHILS % (AUTO) 76.1 % (43.0-81.0); PLATELET COUNT (AUTO) 316 K/uL (150-450); RED BLOOD CELL COUNT(AUTO) 3.93 MIL/uL (4.0-5.2); WHITE BLOOD COUNT (AUTO) 11.6 K/uL (4.3-11.0)
--- NOTE | 2021-05-01 06:09 | NUR ---
RN NOTE PT BEING TRANSFERRED TO MED SURG. REPORT GIVEN TO BARBARA.
[2021-05-01 06:26] LABS: ALANINE AMINOTRANSFERASE 80 U/L (12-78); ALBUMIN 2.2 g/dL (3.4-5.0); ALKALINE PHOSPHATASE 94 U/L (46-116); ASPARTATE AMINOTRANSFERASE 27 U/L (15-37); BILIRUBIN,TOTAL 0.3 mg/dL (0.2-1.0); CALCIUM, SERUM 8.3 mg/dL (8.5-10.1); CARBON DIOXIDE 31 mmol/L (21-32); CHLORIDE 107 mmol/L (98-107); GLUCOSE 299 mg/dL (74-106); MAGNESIUM 2.8 mg/dL (1.8-2.4); PHOSPHORUS 4.8 mg/dL (2.5-4.9); POTASSIUM 3.6 mmol/L (3.5-5.1); SODIUM SERUM 147 mmol/L (136-145); TOTAL PROTEIN, SERUM 6.3 g/dL (6.4-8.2); UREA NITROGEN, BLOOD 68 mg/dL (7-18)
[2021-05-01] MEDS: BLOOD SUGAR DIAGNOSTIC 1 EACH STRIP VI SCH ×4 (06:30→22:12)
[2021-05-01 06:39] VITALS: BP 185/62
[2021-05-01] MEDS: *INSULIN REGULAR(HUMULIN R)HUM 100 UNIT/ML VIAL SQ PRN ×2 (06:41→22:14)
--- NOTE | 2021-05-01 06:43 | NUR ---
RECEIVED PATIENT @ 06:15 FROM karuna IN BED ALERT TO NURSE AT THE BEDSIDE WILL ANSWER SIMPLE QUESTION NO BELONGING BROUGHT WITH RTHE PT. bLOOD SUGAR 255 COVEREC WITH THE am INSULIN ORDERED. gLUCERNA TUBE FEEDING INFUSING VIA PUMP ASP PRECAUTIONS ORTEGA DRAINAGE CLEAR YELLOW
[2021-05-01] MEDS ORDERED: CLONIDINE HCL 0.3 MG/24H PTWK 1 EA PATCH TD SCH (09:00)
[2021-05-01] MEDS: DOCUSATE SODIUM LIQ 100 MG/10 ML UDC GT SCH (09:04)
[2021-05-01] MEDS: LEVOTHYROXINE SODIUM 175 MCG TABLET GT SCH (09:04)
[2021-05-01] MEDS: HEPARIN SODIUM, PORCINE 5000 UNITS/1 ML VIAL SQ SCH ×2 (09:14→21:20)
[2021-05-01] MEDS: hydrALAZINE HCL IV 20 MG VIAL IV PRN ×2 (10:41→16:26)
[2021-05-01 11:10] VITALS: BP 175/64
[2021-05-01] MEDS: INSULIN REGULAR, HUMAN 100 UNIT/ML 3 ML VIAL SQ PRN ×2 (11:48→17:34)
--- NOTE | 2021-05-01 12:00 | NUR ---
m/s psych tech: md visit dr. casper at bedside and aware of elevated blood pressure with order to change hydralazine to q6 hrs prn. order read back and carried out. also md spoke to family and discussed comfort care measures as stated. will continue to monitor.
--- NOTE | 2021-05-01 14:00 | NUR ---
m/s human resource management instructor: notes repositioned and kept comfortable. will continue to monitor.
--- NOTE | 2021-05-01 16:05 | NUR ---
SS note: SS was requested to locate next of kin. SW was provided with contact information for patient's friend, Dianne, , and cousin, Justyna, . SW contacted patient's friend, Dianne. Dianne stated that the patient has no family contact at this time. Dianne reported that the patient's uncle, Roberth this year and patient's years ago. Dianne stated that Justyna is the patient's 's cousin. Dianne confirmed that the patient has no children. SW contacted Justyna. Justyna stated that the patient has no family to contact at this time. Justyna stated that the patient "has not been in touch with family." Justyna stated that she will remain available as needed but is not a blood relative of the patient. Justyna confirmed that she is the patient's 's cousin. SW notified patient's RN Raj of this update. JOHN notified case sealer, Nidia that bioethics may be needed. SS will remain available as needed.
--- NOTE | 2021-05-01 16:26 | NUR ---
m/s senior clinical data coordinator: notes noted b/p elevated, hydralazine 10mg ivp given by rn. will continue to monitor. md aware re: elevated blood pressure. will continue to monitor.
[2021-05-01 17:30] VITALS: BP 172/75
--- NOTE | 2021-05-01 17:30 | NUR ---
m/s e learning designer: notes re check b/p 172/75. kept comfortable and repositioned. will continue to monitor.
[2021-05-01] MEDS: GLUCERNA 1.2 1,000 ML BOTTLE NG PRN (18:40)
--- NOTE | 2021-05-01 19:00 | NUR ---
m/s drafter electrical: notes report given to kimberley (rn) for continuity of care.
[2021-05-01 20:00] VITALS: BP 182/71
--- NOTE | 2021-05-01 20:00 | NUR ---
RECEIVED PATIENT IN BED, ALERT/ORIENTED X1, 3LPM VIA NC, VERBAL AT TIMES, NOT IN APPARENT DISTRESS, DNR/DNI, PEG TUBE FEEDING, GLUCERNA AT 60 ML/HR, CHECKED PLACEMENT, CHECKED RESIDUAL, ZERO, NO ABDOMINAL DISTENTION, NO VOMITING, ORTEGA CATHETER DRAINING WELL, CLEAR AND YELLOW URINE, BP ELEVATED, ON HYDRALAZINE IV. WILL CONTINUE TO MONITOR.
[2021-05-02 03:48] VITALS: BP 162/54
[2021-05-02] MEDS: hydrALAZINE HCL IV 20 MG VIAL IV PRN (04:13)
[2021-05-02 05:26] VITALS: BP 162/68
[2021-05-02] MEDS: INSULIN REGULAR, HUMAN 100 UNIT/ML 3 ML VIAL SQ PRN ×3 (06:40→16:42)
[2021-05-02] MEDS: BLOOD SUGAR DIAGNOSTIC 1 EACH STRIP VI SCH ×4 (06:42→21:42)
--- NOTE | 2021-05-02 07:07 | NUR ---
Alert/oriented x1,verbal at times, able to answer simple questions, stable on 3LPM via NC, no complain of pain, PEG tube feeding tolerated well, no vomiting, Glucerna at 60 ml/hr, with 100 ml free water flush q8hrs, SBP > 160, given hydralazine 10 mg IV x1, matt catheter draining well, wound care performed, niece Justyna agreed for comfort measures only, no aggressive measures, DNR/DNI, continue supportive care, wound care, aspiration precaution
[2021-05-02 07:50] LABS: BASOPHILS # (AUTO) 0.1 K/uL (0.0-0.2); BASOPHILS % (AUTO) 0.7 % (0.0-2.0); EOSINOPHILS % (AUTO) 4.4 % (0.0-6.0); HEMATOCRIT 31 % (33-45); HEMOGLOBIN 9.8 g/dL (11.5-14.8); LYMPHOCYTES # (AUTO) 1.4 K/uL (0.8-4.8); LYMPHOCYTES % (AUTO) 14.3 % (20.0-44.0); MEAN CORPUSCULAR HGB CONC 32 g/dl (31.0-36.0); MEAN CORPUSCULAR VOLUME 85 fL (82-100); MONOCYTES # (AUTO) 0.7 K/uL (0.1-1.30); MONOCYTES % (AUTO) 6.8 % (2.0-12.0); NEUTROPHILS # (AUTO) 7.3 K/uL (1.8-8.9); NEUTROPHILS % (AUTO) 73.8 % (43.0-81.0); PLATELET COUNT (AUTO) 271 K/uL (150-450); RED BLOOD CELL COUNT(AUTO) 3.62 MIL/uL (4.0-5.2); WHITE BLOOD COUNT (AUTO) 9.9 K/uL (4.3-11.0)
--- NOTE | 2021-05-02 07:54 | NUR ---
MS RN OPENING NOTE RECEIVED PATIENT IN BED, AWAKE, TWISTER IN AT BEDSIDE. A/O X1. NODS HEAD TO RESPOND. STABLE ON 3L 02 VIA NASAL CANNULA. NO SOB NOTED. NO DISTRESS/DISCOMFORT NOTED. IV ACCESS TO RIGHT FA #22 - H/L. PEG TUBE NOTED - IN PLACE AND PATENT - RUNNING GLUCERNA AT 60 ML/HR. ORTEGA CATHETER NOTED - INTACT AND PATENT, DRAINING CLEAR, YELLOW URINE TO GRAVITY. SAFETY MEASURES IN PLACE. CALL LIGHT WITHIN REACH. WILL CONTINUE TO MONITOR.
[2021-05-02 08:00] VITALS: BP 152/54
[2021-05-02 08:04] LABS: ALANINE AMINOTRANSFERASE 56 U/L (12-78); ALBUMIN 1.9 g/dL (3.4-5.0); ALKALINE PHOSPHATASE 82 U/L (46-116); ASPARTATE AMINOTRANSFERASE 21 U/L (15-37); BILIRUBIN,TOTAL 0.2 mg/dL (0.2-1.0); CALCIUM, SERUM 8.4 mg/dL (8.5-10.1); CARBON DIOXIDE 33 mmol/L (21-32); CHLORIDE 110 mmol/L (98-107); CREATININE 1.9 mg/dL (0.6-1.3); GLUCOSE 248 mg/dL (74-106); MAGNESIUM 2.8 mg/dL (1.8-2.4); PHOSPHORUS 4.7 mg/dL (2.5-4.9); POTASSIUM 3.8 mmol/L (3.5-5.1); SODIUM SERUM 151 mmol/L (136-145); TOTAL PROTEIN, SERUM 5.8 g/dL (6.4-8.2); UREA NITROGEN, BLOOD 70 mg/dL (7-18)
[2021-05-02] MEDS: LEVOTHYROXINE SODIUM 175 MCG TABLET GT SCH (08:10)
[2021-05-02] MEDS: DOCUSATE SODIUM LIQ 100 MG/10 ML UDC GT SCH (08:10)
[2021-05-02] MEDS: HEPARIN SODIUM, PORCINE 5000 UNITS/1 ML VIAL SQ SCH ×2 (08:11→21:37)
[2021-05-02] MEDS: GLUCERNA 1.2 1,000 ML BOTTLE NG PRN (15:07)
[2021-05-02 16:00] VITALS: BP 147/86
--- NOTE | 2021-05-02 18:20 | NUR ---
MS RN CLOSING NOTE PATIENT CURRENTLY LYING IN BED, RESTING. A/O X1. NODS HEAD TO RESPOND. STABLE ON 3L 02 VIA NASAL CANNULA - TO BE WEANED OFF AND KEEP O2 >90%. NO SOB NOTED. NO DISTRESS/DISCOMFORT NOTED. IV ACCESS TO RIGHT FA #22 - H/L. PEG TUBE NOTED - IN PLACE AND PATENT - RUNNING GLUCERNA AT 60 ML/HR. ORTEGA CATHETER NOTED - INTACT AND PATENT, DRAINING CLEAR, YELLOW URINE TO GRAVITY. SAFETY MEASURES IN PLACE. CALL LIGHT WITHIN REACH. WILL ENDORSE TO PHARMACEUTICAL ENGINEER NURSE FOR ELLYN.
[2021-05-02 20:00] VITALS: BP 156/69
[2021-05-02 20:06] VITALS: BP 156/69
[2021-05-02] MEDS: *INSULIN REGULAR(HUMULIN R)HUM 100 UNIT/ML VIAL SQ PRN (21:44)
--- NOTE | 2021-05-02 22:58 | NUR ---
RN NOTES RECEIVED PATIENT IN BED, ALERT/ORIENTED X1, NON-VERBAL, ABLE TO ANSWER SIMPLE QUESTIONS BY NODDING OR SHAKING HEAD. HOB ELEVATED > 45 DEGREES, GLUCERNA AT 60 ML/HR, AUSCULTATED FOR PATENCY, NO RESIDUAL, FEEDING TOLERATED WELL, ORTEGA CATHETER DRAINING WELL. ASPIRATION PRECAUTION, KEPT SAFE, WILL CONTINUE TO MONITOR
[2021-05-03] MEDS: INSULIN REGULAR, HUMAN 100 UNIT/ML 3 ML VIAL SQ PRN ×3 (05:36→17:09)
[2021-05-03] MEDS ORDERED: BLOOD SUGAR DIAGNOSTIC 1 EACH STRIP VI SCH (06:00)
[2021-05-03] MEDS: BLOOD SUGAR DIAGNOSTIC 1 EACH STRIP IN SCH ×3 (06:09→17:10)
--- NOTE | 2021-05-03 06:50 | NUR ---
ALERT/AWAKE, 3LPM VIA NC, UNABLE TO WEAN OFF 02, ON ROOM AIR SPO2 89%, WHEEZING, GLUCERNA AT 60 ML/HR, TOLERATED WELL, WOUND CARE PERFORMED, ORTEGA CATHETER DRAINING GOOD, ASPIRATION PRECAUTION, FAMILY AGREED TO HOSPICE CARE.
--- NOTE | 2021-05-03 07:49 | NUR ---
MS RN OPENING NOTE RECEIVED PATIENT IN BED, AWAKE. A/O X1. NODS HEAD TO RESPOND. STABLE ON 3L 02 VIA NASAL CANNULA - ANYTHING LESS, PT WILL DESATURATE >89. NO SOB NOTED. NO DISTRESS/DISCOMFORT NOTED. IV ACCESS TO RIGHT FA #22 - H/L. PEG TUBE NOTED - IN PLACE AND PATENT - RUNNING GLUCERNA AT 60 ML/HR. ORTEGA CATHETER NOTED - INTACT AND PATENT, DRAINING CLEAR, YELLOW URINE TO GRAVITY. SAFETY MEASURES IN PLACE. CALL LIGHT WITHIN REACH. WILL CONTINUE TO MONITOR.
[2021-05-03 08:00] VITALS: BP 133/73
[2021-05-03] MEDS: DOCUSATE SODIUM LIQ 100 MG/10 ML UDC GT SCH (08:22)
[2021-05-03] MEDS: LEVOTHYROXINE SODIUM 175 MCG TABLET GT SCH (08:22)
[2021-05-03] MEDS: HEPARIN SODIUM, PORCINE 5000 UNITS/1 ML VIAL SQ SCH ×2 (08:24→20:42)
[2021-05-03] MEDS: AMLODIPINE BESYLATE 5 MG TABLET GT SCH (08:25)
[2021-05-03] MEDS: ACETAMINOPHEN 650 MG/20.3 ML UDC GT PRN (09:21)
--- NOTE | 2021-05-03 09:28 | NUR ---
PATIENT NODDED SHE HAD PAIN - ADMINISTERED 650MG TYLENOL THROUGH GT.
[2021-05-03] MEDS ORDERED: IV 1/2NS 1000 ML 1,000 ML IV PRN (11:00)
[2021-05-03] MEDS: GLUCERNA 1.2 1,000 ML BOTTLE NG PRN (11:16)
--- NOTE | 2021-05-03 12:21 | NUR ---
MS RN NOTE IV ACCESS NO LONGER GOOD. I ATTEMPTED 2 IV'S, WELL ANOTHER NURSE WHO ATTEMPTED TWO WELL. PATIENT WAS UPSET AND DID NOT WANT TO BE POKED AGAIN. UNABLE TO ADMINISTER IV FLUIDS. NOTIFIED.
[2021-05-03 16:00] VITALS: BP 154/64
[2021-05-03] MEDS: hydrALAZINE HCL 25 MG TABLET PO PRN (17:29)
--- NOTE | 2021-05-03 17:37 | NUR ---
MS RN NOTE BP 175/64 - ADMINISTERED HYDRALAZINE 25MG THROUGH GT FOR PROTOCOL OF SPB > 160
--- NOTE | 2021-05-03 18:20 | NUR ---
MS RN CLOSING NOTE PATIENT CURRENTLY LYING IN BED, RESTING. A/O X1. NODS HEAD TO RESPOND. STABLE ON 3L 02 VIA NASAL CANNULA - TO BE WEANED OFF AND KEEP O2 >90%. PATIENT DESATURATES TO 89 AND IS WHEEZING WITHOUT ANY OXYGEN. NO SOB NOTED. NO DISTRESS/DISCOMFORT NOTED. NO IV ACCESS. PEG TUBE NOTED - IN PLACE AND PATENT - RUNNING GLUCERNA AT 60 ML/HR. ORTEGA CATHETER NOTED - INTACT AND PATENT, DRAINING CLEAR, YELLOW URINE WITH MINIMAL SEDIMENTS TO GRAVITY. PER DR BOUCHER, PATIENT TO DISCHARGE TOMORROW. SAFETY MEASURES IN PLACE. CALL LIGHT WITHIN REACH. WILL ENDORSE TO PRODUCTION ENGINEER NURSE FOR ELLYN.
[2021-05-03 20:00] VITALS: BP 160/59
--- NOTE | 2021-05-03 20:00 | NUR ---
MS RN OPENING NOTES Patient seen in no signs of distress. Alert and oriented x1 -to self only. GT feeding going -tolerating well no residual. HOB at 60 degree angle. All safety measures in place. Continue turning q2h and sacral wound treatment as ordered.
[2021-05-04] MEDS: BLOOD SUGAR DIAGNOSTIC 1 EACH STRIP IN SCH ×5 (00:20→23:49)
[2021-05-04] MEDS: INSULIN REGULAR, HUMAN 100 UNIT/ML 3 ML VIAL SQ PRN ×4 (00:45→17:57)
--- NOTE | 2021-05-04 06:34 | NUR ---
MS RN CLOSING NOTES Patient tolerating feeding well. No residual, aspiration precautions maintained. No signs of hypo or hyperglycemic reactions. Kept 3L NC on at night, unable to wean patient becomes visibly SOB. Wound treatment done zguard and mepilex to sacrum. Turn q2h, kept clean and dry.
[2021-05-04 07:04] LABS: CALCIUM, SERUM 8.6 mg/dL (8.5-10.1); CARBON DIOXIDE 34 mmol/L (21-32); CHLORIDE 107 mmol/L (98-107); CREATININE 1.7 mg/dL (0.6-1.3); GLUCOSE 247 mg/dL (74-106); POTASSIUM 4.5 mmol/L (3.5-5.1); SODIUM SERUM 146 mmol/L (136-145); UREA NITROGEN, BLOOD 70 mg/dL (7-18)
[2021-05-04] MEDS: hydrALAZINE HCL 25 MG TABLET PO PRN (07:46)
--- NOTE | 2021-05-04 07:50 | NUR ---
RN NOTE- BP- 179/91 , HR- 90. APRESOLINE 25 MG GIVEN VIA GT AT THIS TIME.
[2021-05-04] MEDS: LEVOTHYROXINE SODIUM 175 MCG TABLET GT SCH (08:33)
[2021-05-04] MEDS: AMLODIPINE BESYLATE 5 MG TABLET GT SCH (08:34)
[2021-05-04] MEDS: DOCUSATE SODIUM LIQ 100 MG/10 ML UDC GT SCH (08:34)
[2021-05-04] MEDS: HEPARIN SODIUM, PORCINE 5000 UNITS/1 ML VIAL SQ SCH (08:43)
--- NOTE | 2021-05-04 09:01 | NUR ---
RN NOTE- F/U BP- 151/66. RX EFFECTIVE
[2021-05-04 09:37] VITALS: BP 179/91
--- NOTE | 2021-05-04 09:55 | NUR ---
RN OPENING NOTE- RECEIVED PATIENT IN BED, AWAKE. A/O X1. NODS HEAD TO RESPOND. STABLE ON 3L 02 VIA NASAL CANNULA. NO SOB NOTED. NO DISTRESS/DISCOMFORT NOTED. PEG TUBE NOTED - IN PLACE AND PATENT - RUNNING GLUCERNA AT 60 ML/HR. ORTEGA CATHETER NOTED - INTACT AND PATENT, DRAINING CLEAR, YELLOW URINE TO GRAVITY. SAFETY MEASURES IN PLACE. CALL LIGHT WITHIN REACH. WILL CONTINUE TO MONITOR.
--- NOTE | 2021-05-04 12:10 | NUR ---
RN NOTE- PT FOUND TO HAVE DECREASED SATURATION AT 67% ON 3L. NON REBREATHER APPLIED, SATS INCREASED TO 88% . PT SUCTIONED W CATHY. SMALL SECRETIONS REMOVED . RT PAGED. DR AVILA NOTIFIED. [id number].
--- NOTE | 2021-05-04 12:21 | NUR ---
RT WAS CALLED TO ASSESS PATIENT ON NRB MASK SPO2 88%. PATIENT BASELINE NON RESPONSIVE, B/S COARSE, PATIENT WAS NT SUCTIONED WITH SMALL AMT OF WHITE SECRETIONS. RT SUGGESTED TO CALL ATTENDING FOR FURTHER INTERVENTION INSTRUCTIONS.
[2021-05-04] MEDS: NITROGLYCERIN 30 GM TUBE TP SCH ×2 (12:52→16:56)
[2021-05-04] MEDS ORDERED: FUROSEMIDE 40 MG/4 ML VIAL IV ONE (13:00)
--- NOTE | 2021-05-04 13:00 | NUR ---
RN NOTE- DR CROOK SAW PT AND SPOKE TO FAMILY. MID LINE INSERTED, LASIX 40 MG ADMINISTERED,. PT SATS AT 86-90% NON REBREATHER. ,MONITORING
--- NOTE | 2021-05-04 14:15 | NUR ---
RN NOTE- FAMILY FRIEND AT BEDSIDE. O2 SATS AT 96% NON REBREATHER. COMFORTABLE
--- NOTE | 2021-05-04 15:00 | NUR ---
RN NOTE- PT COMFORTABLE, SATURATION AT 97%. REPOSITIONED W ASSIST FROM SADDLE MAKER. NEEDS ATTENDED. FAMILY AWARE OF PT CONDITION. FAMILY FRIEND AT BEDSIDE.
--- NOTE | 2021-05-04 18:01 | NUR ---
RN NOTE- PT CONTINUES TO BE LETHARGIC AND DECLINING. ACCU-CHECK BS- 241/ 6 USSI. SATURATION HOLDS AT 97% ON NON REBREATHER. CHEST W RHONCHI AND RALES. MONITOR/ ASSIST
--- NOTE | 2021-05-04 18:49 | NUR ---
RN CLOSING NOTE- PT DECLINING. VS STABLE AT PRESENT. PT COMFORTABLE. FAMILY FRIEND AT BEDSIDE. LABS ORDERED FOR EARLY AM 8/3 - CBC, CMP, MAG, PHOS. SIDE RAILS UP, BED LOCKED. ASSIST / MONITOR
--- NOTE | 2021-05-04 19:30 | NUR ---
Patient is not alert or oriented. Responds to deep pain only. Family aware of clinical situation and at bedside. VSS at this time patient remains on 15L O2 via non-rebreather.
[2021-05-04 20:00] VITALS: BP 112/58
[2021-05-04] MEDS ORDERED: MORPHINE SULFATE INJ 2 MG/ML DISP.SYRIN IV ONE (23:00)
--- NOTE | 2021-05-04 23:00 | NUR ---
Patient having rapid labored breathing -in distress. Morphine 1mg IVP one time only now order by on-call MD.
--- NOTE | 2021-05-05 04:11 | NUR ---
Patient still saturating at 92-94% on 15L via non-rebreather mask. RR 24.
--- NOTE | 2021-05-05 04:12 | NUR ---
suctioned oral secretions for comfort
[2021-05-05] MEDS: BLOOD SUGAR DIAGNOSTIC 1 EACH STRIP IN SCH (06:33)
[2021-05-05 06:40] LABS: BASOPHILS % (AUTO) 0.1 % (0.0-2.0); HEMATOCRIT 34 % (33-45); HEMOGLOBIN 10.1 g/dL (11.5-14.8); LYMPHOCYTES # (AUTO) 0.9 K/uL (0.8-4.8); LYMPHOCYTES % (AUTO) 3.6 % (20.0-44.0); MEAN CORPUSCULAR HGB CONC 30 g/dl (31.0-36.0); MEAN CORPUSCULAR VOLUME 91 fL (82-100); MONOCYTES # (AUTO) 1.3 K/uL (0.1-1.30); MONOCYTES % (AUTO) 4.9 % (2.0-12.0); NEUTROPHILS # (AUTO) 23.3 K/uL (1.8-8.9); NEUTROPHILS % (AUTO) 91.4 % (43.0-81.0); PLATELET COUNT (AUTO) 399 K/uL (150-450); RED BLOOD CELL COUNT(AUTO) 3.76 MIL/uL (4.0-5.2); WHITE BLOOD COUNT (AUTO) 25.5 K/uL (4.3-11.0)
--- NOTE | 2021-05-05 06:51 | NUR ---
Patient not breathing. Non-responsive. Can still hear quivering in chest. Continues having pulseless electrical activity on monitor. Skin still has color -no cyanosis. Will continue to monitor closely. Addendum: 05/05/21 at 0653 by SU REYES RN zabrina time of note 0610
--- NOTE | 2021-05-05 07:00 | NUR ---
RN NOTE PT TIME OF AT 0700. FAMILY NOTIFIED. POST MORTEM CARE APPLIED. PT TO BE BROUGHT TO [facility]. [facility] NOTIFIED. MD AND TECHNICAL ASSISTANT NOTIFIED.
[2021-05-05 07:13] LABS: ALANINE AMINOTRANSFERASE 36 U/L (12-78); ALKALINE PHOSPHATASE 93 U/L (46-116); ASPARTATE AMINOTRANSFERASE 35 U/L (15-37); BILIRUBIN,TOTAL 0.3 mg/dL (0.2-1.0); CALCIUM, SERUM 9.2 mg/dL (8.5-10.1); CHLORIDE 110 mmol/L (98-107); CREATININE 2.8 mg/dL (0.6-1.3); GLUCOSE 141 mg/dL (74-106); MAGNESIUM 3.8 mg/dL (1.8-2.4); SODIUM SERUM 151 mmol/L (136-145); TOTAL PROTEIN, SERUM 6.2 g/dL (6.4-8.2)
--- NOTE | 2021-05-05 07:53 | NUR ---
[facility] announced 0700 by charge nurse. DPOA called. Family called. notified. Nurse Instructor notified. Lines removed. Body prepared. Endorsed to AM nurse to call back DPOA to confirm [facility] of choice.
[2021-05-05 08:41] LABS: CARBON DIOXIDE 41 mmol/L (21-32); PHOSPHORUS 10.9 mg/dL (2.5-4.9); POTASSIUM 6.9 mmol/L (3.5-5.1); UREA NITROGEN, BLOOD 89 mg/dL (7-18)
[2021-05-05 10:00] LABS: BAND % (MANUAL) 4 % (0.0-5.0); LYMPHOCYTES % (MANUAL) 2 % (16-48); MONOCYTES % (MANUAL) 4 % (0-11.0); NEUTROPHILS % (MANUAL) 90 (42-76)
== END 2021-05-05 07:00 | DRG 871 ==
LOC: ER 07:13 → TELE1 09:05 → MEDSG1 11:08 → TELE-TD 04-29 22:03 → MEDSG1 04-30 06:41 → MED 05-01 06:08
PROVIDERS: ADMIT Internal Medicine; ATTEND Hospitalist
PROC: 05HB33Z Insertion of Infusion Device into Right Basilic Vein, Percutaneous Approach (ICD-10-PCS; principal; 2021-05-04)
DX: A41.9 Sepsis, unspecified organism (principal); E43 Unspecified severe protein-calorie malnutrition; I21.4 Non-ST elevation (NSTEMI) myocardial infarction; G93.41 Metabolic encephalopathy; J18.9 Pneumonia, unspecified organism; N17.0 Acute kidney failure with tubular necrosis; J96.01 Acute respiratory failure with hypoxia; E87.1 Hypo-osmolality and hyponatremia; R57.9 Shock, unspecified; I69.351 Hemiplegia and hemiparesis following cerebral infarction affecting right dominant side; I44.2 Atrioventricular block, complete; E87.2 Acidosis; E11.22 Type 2 diabetes mellitus with diabetic chronic kidney disease; E86.1 Hypovolemia; Z20.822 Contact with and (suspected) exposure to COVID-19; E78.5 Hyperlipidemia, unspecified; G20 Parkinson's disease; F02.80 Dementia in other diseases classified elsewhere, unspecified severity, without behavioral disturbance, psychotic disturbance, mood disturbance, and anxiety; I12.9 Hypertensive chronic kidney disease with stage 1 through stage 4 chronic kidney disease, or unspecified chronic kidney disease; I25.10 Atherosclerotic heart disease of native coronary artery without angina pectoris; G40.909 Epilepsy, unspecified, not intractable, without status epilepticus; N18.9 Chronic kidney disease, unspecified; R13.10 Dysphagia, unspecified; R26.9 Unspecified abnormalities of gait and mobility; E11.40 Type 2 diabetes mellitus with diabetic neuropathy, unspecified; Z51.5 Encounter for palliative care; Z66 Do not resuscitate; Z93.1 Gastrostomy status; Z79.4 Long term (current) use of insulin; Z90.49 Acquired absence of other specified parts of digestive tract; Z88.5 Allergy status to narcotic agent; Z88.8 Allergy status to other drugs, medicaments and biological substances; Z79.899 Other long term (current) drug therapy; Y95 Nosocomial condition; R62.7 Adult failure to thrive; E87.5 Hyperkalemia; E03.9 Hypothyroidism, unspecified; E86.9 Volume depletion, unspecified
CPT/HCPCS: 36415; 36600; 71045-TC; 80048-TC; 80053-TC; 80076-TC; 81001; 82803-TC; 82962-TC; 83605-TC; 83735-TC; 83880; 84100-TC; 84436-TC; 84439-TC; 84443-TC; 84484-TC; 85025-TC; 85730-TC; 87040-TC; 87081-TC; 87086-TC; 93971-TC; 94799-TC; A6253; A6403; C9803; G0378; J0360; J1644; J1815; J1940; J2270; J2543; J3370; J3490; J7030; J7060; U0003